=== PATIENT | female | born 1980 | race Caucasian/White ===

== ENCOUNTER 2020-04-19 03:18 | Emergency (ER) | payer OTHER, SELFPAY ==
[2020-04-19 03:31] VITALS: BP 154/94; PULSE 86; RESP 16; TEMP 37.2; O2SAT 100; BMI 44.9
--- NOTE | 2020-04-19 03:55 | ED_ITS ---
HPI - Wound/Laceration General Chief Complaint: Wound/Laceration Stated Complaint: Spitting up blood Time Seen by Provider: 04/19/20 03:55 History of Present Illness HPI narrative: This is a 40-year-old female who presents postop day 1 status post tonsillectomy with concerns regarding waking up with dark blood in her mouth. She denies any personal or family history of bleeding disorders, denies any gum bleeding, and denies history of menorrhagia. She has not had any fevers or chills. Related Data Allergies Allergy/AdvReac Type Severity Reaction Status Date / Time No Known Allergies Allergy Unverified 04/02/20 16:51 Review of Systems Review of Systems: Pertinent positives and negatives as stated in HPI 10 point review of systems otherwise negative. [facility] Past Medical History Source: nursing notes reviewed Medical History HTN (hypertension) Tonsillectomy planned Social History Social History Alcohol intake: never Smoking Status: Never smoker Use of substances other than those prescribed or required for medical reasons: No Advance Directives: No Advance Directives Information Provided: No Physical Exam Vital Signs and I&O and Narrative: Vital Signs and I&O: Vital Signs Temp 98.9 F 04/19/20 03:31 Pulse 86 04/19/20 03:31 Resp 16 04/19/20 03:31 BP 154/94 H 04/19/20 03:31 Pulse Ox 100 04/19/20 03:31 Intake & Output 04/18/20 04/18/20 04/19/20 06:59 18:59 06:59 Weight 107.955 kg Body Mass Index 44.9 VITAL SIGNS: Reviewed. GENERAL: Well developed, well nourished, in no acute distress. HEAD: Normocephalic/atraumatic, EYES: PERRLA, EOMI intact without pain, no nystagmus/pallor/icterus noted EARS: Ext canals without abnormality, TMs non-bulging and non-erythematous NOSE: Nares patent bilateral OROPHARYNX: no oral lesions noted, posterior pharynx shows normal appearance of tonsillar beds after surgical removal without evidence of acute bleeding. In addition, there is no evidence of airway compromise NECK: Supple, no adenopathy LUNGS: Normal breath sounds. No adventitious sounds or accessory muscle use. SpO2<> CARDIOVASCULAR: Regular rate and rhythm without noted murmurs, no JVD or lower extremity edema. ABDOMEN: Soft, non-tender, non-distended with bowel sounds. No rigidity. No guarding. No palpable masses or hernias noted MUSCULOSKELETAL: No tenderness, deformities, or effusions noted on gross inspection. EXTREMITIES: No cyanosis, clubbing or edema. SKIN: Inspection of the skin reveals no rashes, ulcerations, jaundice, pallor, or petechiae. NEUROLOGIC: Alert and oriented x 4. Strength and sensation to light touch were grossly intact Course Course Hospital Course: This is a 40-year-old female with history and clinical presentation consistent with normal progression of tonsillectomy at postop day 1 without respiratory compromise and patient was reassured that this was a normal occurrence. She was then advised that she can do ice water gargles 3 to 4 times a day and was encouraged to follow-up with the ENT physicians office tomorrow morning. Discharge Plan Discharge Clinical Impression: Wound disruption Qualifiers: Encounter type: initial encounter Qualified Code(s): T81.30XA - Disruption of wound, unspecified, initial encounter Patient Disposition: Home, Self-Care Instructions: Tonsillectomy (DC) Additional Instructions: 1. perform ice water gargles for 5-10 minutes, 3 to 4 times a day if you notice mild bleeding. 2. avoid spitting 3. return to the emergency department if you experience any uncontrolled bleeding despite using ice water gargles, especially if you experience difficulty breathing with this. 4. call the ENT office tomorrow and inform them of your visit to the emergency room and the recommendations that were made. The patient and/or family acknowledge understanding of results (as applicable), diagnosis, treatment plan, need for follow up, and symptoms that should prompt a return to the emergency room. Referrals: Physician,Unknown [Primary Care Provider] - 2 days (Please follow-up with your ENT physician tomorrow through their on-call office.) Print Language: American
== END 2020-04-19 05:11 | disposition home or self-care (01) ==
PROVIDERS: Emergency Provider Student in an Organized Health Care Education/Training Program
DX: T81.30XA Disruption of wound, unspecified, initial encounter (principal); Z98.890 Other specified postprocedural states; I10 Essential (primary) hypertension
CPT/HCPCS: 99282; 99284

== ENCOUNTER 2020-08-05 08:27 | Outpatient (REF) | payer MEDICAID, SELFPAY ==
[2020-08-06 08:41] LABS: BV Int Neg Control Negative (Negative); BV Int Pos Control Positive (Positive)
[2020-08-07 00:48] LABS: C. trachomatis RNA TMA NOT DETECTED (NOT DETECTED); N. gonorrhoeae RNA TMA NOT DETECTED (NOT DETECTED)
[2020-08-10 21:52] LABS: HPV mRNA E6/E7 Not Detected (Not Detected)
== END 2020-08-05 08:28 | disposition home or self-care (01) ==
LOC: HO.LAB 08:27
PROVIDERS: Visit Provider Obstetrics & Gynecology
DX: Z01.419 Encounter for gynecological examination (general) (routine) without abnormal findings (principal); T83.32XA Displacement of intrauterine contraceptive device, initial encounter; L68.0 Hirsutism; Z11.3 Encounter for screening for infections with a predominantly sexual mode of transmission
CPT/HCPCS: 36415; 87480; 87491; 87510; 87591; 87624; 87625; 87660; 88141; 88142

== ENCOUNTER 2020-08-13 14:48 | Outpatient (REF) | payer MEDICAID, SELFPAY ==
--- NOTE | 2020-08-13 14:52 | US_ITS ---
EXAMINATION: US PELVIS COMPLETE. CLINICAL INFORMATION: Question displacement of IUD. COMPARISON: Ultrasound pelvis 10/09/2015 TECHNIQUE: Transabdominal and transvaginal ultrasound pelvis is performed. FINDINGS: On transabdominal ultrasound, the uterus is anteverted and anteflexed measuring 9.3 cm in length, 4.1 cm in AP and 5.2 cm in transverse dimension. The myometrium is homogeneous in echotexture. There is an IUD well located within the endometrial canal. It is 0.75 cm away from the fundal endometrium. Small nabothian cyst is seen in cervix. The right ovary measures 3.9 x 3.2 x 3.9 cm and volume 25.5 mL. There is a small cyst in the right ovary measuring 3.2 x 2.7 x 3.0 cm. The left ovary measures 2.2 x 1.8 x 1.7 cm and volume 3.5 mL. It appears unremarkable. There is no free fluid in the cul-de-sac. US/US pelvic complete IMPRESSION: 1. Well located IUD within the endometrial canal. The uterus is otherwise unremarkable. 2. Multiple nabothian cysts in the cervix. 3. Small simple cyst, right ovary.
--- NOTE | 2020-08-13 14:52 | US_ITS ---
EXAMINATION: US PELVIS COMPLETE. CLINICAL INFORMATION: Question displacement of IUD. COMPARISON: Ultrasound pelvis 10/09/2015 TECHNIQUE: Transabdominal and transvaginal ultrasound pelvis is performed. FINDINGS: On transabdominal ultrasound, the uterus is anteverted and anteflexed measuring 9.3 cm in length, 4.1 cm in AP and 5.2 cm in transverse dimension. The myometrium is homogeneous in echotexture. There is an IUD well located within the endometrial canal. It is 0.75 cm away from the fundal endometrium. Small nabothian cyst is seen in cervix. The right ovary measures 3.9 x 3.2 x 3.9 cm and volume 25.5 mL. There is a small cyst in the right ovary measuring 3.2 x 2.7 x 3.0 cm. The left ovary measures 2.2 x 1.8 x 1.7 cm and volume 3.5 mL. It appears unremarkable. There is no free fluid in the cul-de-sac. US/US transvaginal IMPRESSION: 1. Well located IUD within the endometrial canal. The uterus is otherwise unremarkable. 2. Multiple nabothian cysts in the cervix. 3. Small simple cyst, right ovary.
[2020-08-14 03:46] LABS: Syphilis Screen Nonreactive (Nonreactive)
[2020-08-14 03:49] LABS: HBsAGNum1 0.18 S/CO (0.00-0.99); HIV AB/AG Nonreactive (Nonreactive); HIV Num 1 0.06 S/CO (0.00-0.99); Hepatitis B Surface Antigen Negative (Negative); ~HepC Num1 0.07 S/CO (0.00-0.79); ~Hepatitis C Antibody Nonreactive (Nonreactive)
[2020-08-14 06:12] LABS: DHEA Sulfate 139 mcg/dL (23-266)
[2020-08-15 17:43] LABS: C. trachomatis RNA TMA NOT DETECTED (NOT DETECTED); N. gonorrhoeae RNA TMA NOT DETECTED (NOT DETECTED)
[2020-08-18 10:02] LABS: Testosterone, Free 5.8 pg/mL (0.1-6.4); Testosterone, Total 33 ng/dL (2-45)
== END 2020-08-13 14:49 | disposition home or self-care (01) ==
LOC: HO.US 14:48
PROVIDERS: Visit Provider Obstetrics & Gynecology
DX: Z01.84 Encounter for antibody response examination (principal); Z11.3 Encounter for screening for infections with a predominantly sexual mode of transmission; T83.32XA Displacement of intrauterine contraceptive device, initial encounter; L68.0 Hirsutism
CPT/HCPCS: 36415; 76830; 76856; 82627; 83498; 84402; 84403; 86780; 86803; 87340; 87389; 87491; 87591

== ENCOUNTER → 2020-08-24 11:09 | Outpatient (BNVA) | payer MEDICAID, SELFPAY | PROVIDERS: Visit Provider Obstetrics & Gynecology ==

== ENCOUNTER → 2020-09-08 14:04 | Outpatient (BNVA) | payer MEDICAID, SELFPAY | PROVIDERS: Visit Provider Obstetrics & Gynecology | DX: Z30.433 Encounter for removal and reinsertion of intrauterine contraceptive device (principal) | CPT/HCPCS: 58300; 58301 ==

== ENCOUNTER → 2020-10-06 08:14 | Outpatient (BNVA) | payer MEDICAID, SELFPAY | PROVIDERS: Visit Provider Obstetrics & Gynecology | DX: Z30.431 Encounter for routine checking of intrauterine contraceptive device (principal) | CPT/HCPCS: 81025; 99212 ==

== ENCOUNTER 2021-03-10 09:53 | Outpatient (REF) | payer MEDICAID, SELFPAY ==
[2021-03-10 11:19] LABS: COVID-19 Test Negative (Negative)
== END 2021-03-10 09:54 | disposition home or self-care (01) ==
LOC: HO.LAB 09:53
PROVIDERS: Visit Provider Internal Medicine
DX: Z20.822 Contact with and (suspected) exposure to COVID-19 (principal)
CPT/HCPCS: 36415; 87635; C9803

== ENCOUNTER 2021-06-17 10:06 | Outpatient (REF) | payer MEDICAID, SELFPAY ==
[2021-06-17 16:57] LABS: CT PCR NOT DETECTED (Not Detect.); NG PCR NOT DETECTED (Not Detect.)
== END 2021-06-17 10:07 | disposition home or self-care (01) ==
LOC: HO.LAB 10:06
PROVIDERS: Visit Provider Obstetrics & Gynecology
DX: Z30.432 Encounter for removal of intrauterine contraceptive device (principal); N93.9 Abnormal uterine and vaginal bleeding, unspecified
CPT/HCPCS: 58301; 87491; 87591; 99212

== ENCOUNTER → 2021-06-29 09:53 | Outpatient (BNVA) | payer MEDICAID, SELFPAY | PROVIDERS: PCP Internal Medicine; Referring Provider Internal Medicine; Visit Provider Physician Assistant Surgical ==

== ENCOUNTER 2021-07-08 08:33 | Outpatient (REF) | payer MEDICAID, SELFPAY ==
[2021-07-08 10:01] LABS: Hematocrit 42.3 % (37.0-47.0); Hemoglobin 13.8 g/dl (12.0-16.0); Mean Corpuscular HGB Conc 32.6 g/dl (31.0-35.0); Mean Corpuscular Hemoglobin 30.3 pg (27.0-33.0); Mean Corpuscular Volume 92.8 fL (80.0-98.0); Mean Platelet Volume 10.2 fL (9.4-12.3); Platelet Count 308 X10*3/uL (160-400); Red Blood Count 4.56 X10*6/uL (4.20-5.50); Red Cell Distribution Width 12.7 % (11.0-16.0); White Blood Count 7.8 X10*3/uL (4.8-10.8)
[2021-07-08 10:47] LABS: HCG Quantitative < 2 mIU/mL
== END 2021-07-08 08:34 | disposition home or self-care (01) ==
LOC: HO.LAB 08:33
PROVIDERS: PCP Internal Medicine; Visit Provider Obstetrics & Gynecology
DX: N93.9 Abnormal uterine and vaginal bleeding, unspecified (principal); I10 Essential (primary) hypertension
CPT/HCPCS: 36415; 58100; 84443; 84702; 85027; 88305

== ENCOUNTER 2021-07-12 07:48 | Outpatient (REF) | payer MEDICAID, SELFPAY ==
--- NOTE | ~2021-07-12 | MM_ITS ---
EXAMINATION: MM SCREENING DIGITAL BREAST TOMOSYNTHESIS, BILATERAL CLINICAL INFORMATION: Screening. Asymptomatic. No prior breast imaging. Age 41. No known family history breast cancer. The lifetime risk of breast cancer based on the Tyrer-Cuzick Model is 8%. COMPARISON: None. TECHNIQUE: Digital breast tomosynthesis is performed in both the craniocaudal and mediolateral oblique views along with computer-aided detection (CAD). Synthesized 2D images are generated from the tomosynthesis. Additional bilateral MLO views are provided. FINDINGS: The breasts are almost entirely fatty (ACR BI-RADS breast composition Category a). There is no mass or architectural abnormality. No abnormal calcifications. Skin contours are smooth. The axilla are unremarkable. MM/MM tomosynthesis screening BI IMPRESSION: No mammographic evidence of malignancy. ASSESSMENT: BI-RADS 1: Negative RECOMMENDATION: Routine annual mammography screening. This patient's information was entered into a reminder system with a target due date for their next mammogram.
--- NOTE | ~2021-07-12 | US_ITS ---
EXAMINATION: US PELVIS CLINICAL INFORMATION: Abnormal menstrual bleeding. Last menstrual period 05/29/2021. COMPARISON: 08/13/2020 TECHNIQUE: Ultrasound of the pelvis is performed using both transabdominal and transvaginal transducers along with Doppler. Transvaginal imaging is performed due to inadequate visualization transabdominally. FINDINGS: Uterus: The uterus is anteverted and measures 8.6 x 4.2 x 5.2 cm. The double wall endometrial thickness is 6 mm. The uterus is smooth in contour and has normal myometrial echogenicity. No visible fibroid. Adnexa: Only the right ovary was visualized. There is normal color flow to the adnexa. There is no ovarian torsion. There is no pelvic ascites or fluid collection. Right ovary measures 3.6 x 3.0 x 2.9 cm. Follicle measuring up to 2.6 cm, normal finding. Small likely physiologic free fluid identified. US/US pelvic and transvaginal IMPRESSION: 1. No acute abnormalities within the pelvis identified sonographically. The left ovary was unable to be seen. 2. Small pelvic free fluid, likely physiologic in a premenopausal female.
== END 2021-07-12 07:49 | disposition home or self-care (01) ==
LOC: HO.MAMMO 07:48
PROVIDERS: Visit Provider Internal Medicine
DX: Z12.31 Encounter for screening mammogram for malignant neoplasm of breast (principal); N93.9 Abnormal uterine and vaginal bleeding, unspecified
CPT/HCPCS: 76830; 76856; 77063; 77067

== ENCOUNTER → 2021-07-20 10:52 | Outpatient (BNVA) | payer MEDICAID, SELFPAY | PROVIDERS: PCP Internal Medicine; Visit Provider Obstetrics & Gynecology ==

== ENCOUNTER → 2021-07-21 09:29 | Outpatient (BNVA) | payer MEDICAID, SELFPAY | PROVIDERS: PCP Internal Medicine; Visit Provider Surgery ==

== ENCOUNTER 2021-07-29 09:47 | Outpatient (REF) | payer MEDICAID, SELFPAY ==
--- NOTE | ~2021-07-29 | XR_ITS ---
EXAMINATION: XR CHEST CLINICAL INFORMATION: Obesity COMPARISON: Previous chest x-ray December 2018 TECHNIQUE: 2 views of the chest were obtained. FINDINGS: No significant abnormality is noted involving the heart, lungs, mediastinum, bony thorax or soft tissues. XR/XR chest 2V IMPRESSION: Unremarkable examination.
--- NOTE | 2021-07-29 09:52 | ECG_ITS ---
Test Reason : E66.01 Blood Pressure : / mmHG Vent. Rate : 069 BPM Atrial Rate : 069 BPM P-R Int : 148 ms QRS Dur : 084 ms QT Int : 380 ms P-R-T Axes : 052 026 028 degrees QTc Int : 407 ms Normal sinus rhythm Normal ECG When compared with ECG of 06-JAN-2019 00:47, Borderline criteria for Anterior infarct are no longer Present Referred By: Anshu Garg Electronically Signed By:JESSE FRY
[2021-07-29 10:06] LABS: MANUAL DIFF FLAG NO
[2021-07-29 10:37] LABS: Basophils Percent Auto 0.5 % (0-2); Eosinophils Absolute Auto 0.2 X10*3/uL (0.0-0.4); Eosinophils Percent Auto 3.2 % (0-4); Hemoglobin 14.1 g/dl (12.0-16.0); Imm Gran Abs Auto 0.02 X10*3/uL (0.00-0.03); Imm Gran Pct Auto 0.3 % (0.0-0.4); Lymphocytes Absolute Auto 1.6 X10*3/uL (1.2-4.9); Lymphocytes Percent Auto 25.8 % (20-40); Mean Corpuscular HGB Conc 32.8 g/dl (31.0-35.0); Mean Corpuscular Hemoglobin 30.4 pg (27.0-33.0); Mean Corpuscular Volume 92.7 fL (80.0-98.0); Mean Platelet Volume 10.5 fL (9.4-12.3); Monocytes Absolute Auto 0.7 X10*3/uL (0.1-1.2); Monocytes Percent Auto 10.4 % (2-11); Neutrophils Absolute Auto 3.8 x10*3/uL (2.0-8.3); Neutrophils Percent Auto 59.8 % (45-73); Platelet Count 296 X10*3/uL (160-400); Red Blood Count 4.64 X10*6/uL (4.20-5.50); Red Cell Distribution Width 12.6 % (11.0-16.0); White Blood Count 6.3 X10*3/uL (4.8-10.8)
[2021-07-29 11:15] LABS: Alanine Aminotransferase 43 U/L (0-31); Albumin Level 3.8 g/dL (3.5-5.0); Alkaline Phosphatase 56 U/L (39-117); Anion Gap 10 (12-20); Aspartate Amino Transferase 26 U/L (5-31); Bilirubin Total 0.6 mg/dL (0.0-1.0); Blood Urea Nitrogen 10 mg/dL (9-16); C Reactive Protein 0.43 mg/dL (< or = 0.50); Calcium 9.2 mg/dL (8.4-10.2); Carbon Dioxide 28 mmol/L (22-29); Chloride 106 mmol/L (96-108); Cholesterol 168 mg/dL; Estimated Glomerular Filt Rate > 60; Glucose Random 92 mg/dL (60-115); HDL Cholesterol 47 mg/dL; Iron 68 mcg/dL (30-160); LDL Cholesterol Calculated 102 mg/dl; Percent Iron Saturation 21 % (15-50); Potassium 4.1 mmol/L (3.3-5.1); Sodium 140 mmol/L (135-145); Total Iron Binding Capacity 331 mcg/dL (228-428); Total Protein 6.6 g/dL (6.5-8.0); Triglycerides 99 mg/dL; Unsaturated Iron Binding 263 ug/dL
[2021-07-29 11:24] LABS: TSH reflex Free T4 0.87 uIU/mL (0.32-4.0); Vitamin D 25-OH Total 23.4 ng/mL (>30)
[2021-07-29 11:34] LABS: Estimated Average Glucose 105 mg/dL; Hemoglobin A1c % 5.3 %
[2021-07-29 12:09] LABS: Folate 11.2 ng/mL (> or = 4.0); Vitamin B12 700 pg/mL (200-900)
[2021-07-29 12:25] LABS: Ferritin 92 ng/mL (10-250); Insulin 11 uU/mL (2-29)
[2021-07-30 12:57] LABS: H Pylori Breath Test Negative (Negative)
[2021-07-30 18:01] LABS: Calcium (PTHI) 9.1 mg/dL (8.6-10.2); PTHI 67 pg/mL (14-64)
[2021-08-03 15:57] LABS: Zinc 66 mcg/dL (60-130)
[2021-08-04 14:42] LABS: Vitamin A 53 mcg/dL (38-98)
[2021-08-04 16:31] LABS: Vitamin B1 9 nmol/L (8-30)
== END 2021-07-29 09:48 | disposition home or self-care (01) ==
LOC: HO.XRAY 09:47
PROVIDERS: PCP Internal Medicine; Visit Provider Surgery
DX: E66.01 Morbid (severe) obesity due to excess calories (principal); I10 Essential (primary) hypertension
CPT/HCPCS: 36415; 71046; 80053; 80061; 82306; 82607; 82728; 82746; 83013; 83036; 83525; 83540; 83970; 84425; 84443; 84590; 84630; 85025; 86140; 93005; 99211

== ENCOUNTER → 2021-08-20 08:02 | Outpatient (BNVA) | payer MEDICAID, SELFPAY | PROVIDERS: PCP Internal Medicine; Visit Provider Surgery ==

== ENCOUNTER → 2021-08-25 08:16 | Outpatient (BNVA) | payer MEDICAID, SELFPAY | PROVIDERS: PCP Internal Medicine; Visit Provider Dietitian, Registered | DX: E66.01 Morbid (severe) obesity due to excess calories (principal) | CPT/HCPCS: 97802 ==

== ENCOUNTER → 2021-09-08 08:02 | Outpatient (BNVA) | payer MEDICAID, SELFPAY | PROVIDERS: PCP Internal Medicine; Visit Provider Dietitian, Registered | DX: E66.01 Morbid (severe) obesity due to excess calories (principal); Z68.41 Body mass index [BMI] 40.0-44.9, adult | CPT/HCPCS: 97803 ==

== ENCOUNTER 2021-09-13 09:20 | Outpatient (REF) | payer MEDICAID, SELFPAY ==
--- NOTE | ~2021-09-13 | US_ITS ---
EXAMINATION: US COMPLETE ABDOMEN WITH LIVER ELASTOGRAPHY CLINICAL INFORMATION: Morbid obesity COMPARISON: None. TECHNIQUE: Real-time imaging of the abdominal viscera. Noninvasive ultrasound liver fibrosis assessment is performed using Saba ElastPQ point quantification shear wave elastography (2D-SWE) with a C5-2 MHz transducer. Multiple elastography samples are obtained. FINDINGS: PANCREAS: Normal. The visualized pancreatic head and body are normal in appearance. The remainder of the pancreas is obscured from visualization by the overlying bowel gas. ABDOMINAL AORTA: The proximal, middle, and distal aortic segments are normal in caliber. INFERIOR VENA CAVA: Visualized portions are normal. LIVER: Diffuse increased parenchymal echogenicity. Mild hepatomegaly. The liver demonstrates normal size, contour.. No focal lesion or intrahepatic biliary duct dilatation. The right lobe measures 18.5 cm in length. The left lobe measures 12.4 cm in length. Portal flow is hepatopedal Shear wave liver elastography median stiffness is 1.77 m/s (reference: normal median stiffness is 1.3 m/s or less). IQR/median stiffness to assess sampling precision is 0.16 (reference: good quality data set is IQR/median stiffness of 0.15 or less). GALLBLADDER: Normal. The gallbladder is physiologically distended without evidence of stones, sludge, polyps, wall thickening or pericholecystic fluid. COMMON BILE DUCT: Normal in caliber measuring 0.3 cm in diameter. RIGHT KIDNEY: Normal. No hydronephrosis. No renal calculi or focal parenchymal lesions. The kidney measures 11.9 cm in maximum dimension. LEFT KIDNEY: Normal. No hydronephrosis. No renal calculi or focal parenchymal lesions. The kidney measures 11.7 cm in maximum dimension. SPLEEN: Normal. The spleen measures 9.4 cm in maximum dimension. FREE FLUID: None. US/US abdomen comp w elastography IMPRESSION: 1. Increased hepatic parenchymal echogenicity, can be seen with hepatic steatosis, hepatocellular disease. No focal lesion seen. 2. Liver elastography: Median stiffness 1.77 cm/s. Liver Stiffness 1.7-2.1 m/s: Suggestive of compensated advanced chronic liver disease but need further test for confirmation REFERENCE: Society of Radiologists in Ultrasound Liver Stiffness Thresholds (2020): LIVER STIFFNESS THRESHOLDS: *Liver Stiffness equal or less than 1.3 m/s: High probability of being normal. *Liver Stiffness less than 1.7 m/s: In the absence of other known clinical signs, rules out compensated advanced chronic liver disease. *Liver Stiffness 1.7-2.1 m/s: Suggestive of compensated advanced chronic liver disease but need further test for confirmation. *Liver Stiffness over 2.1 m/s: Rules in compensated advanced chronic liver disease. *Liver Stiffness over 2.4 m/s: Suggestive of clinically significant portal hypertension. QUALITY OF DATA SET: *IQR/Median value equal or less than 0.15 implies a quality data set. *IQR/Median value over 0.15 implies a poor quality data set. SIGNIFICANT CHANGE FROM PRIOR EXAM: Significant change if liver stiffness measurement is 10% or greater from prior exam. OTHER CONSIDERATIONS: The stage of liver fibrosis may be overestimated in the setting of acute hepatitis, liver inflammation, elevated liver function tests, hepatic vascular congestion, obstructive cholestasis, non-fasting state, and infiltrative diseases such as amyloidosis and lymphoma. In some patients with NAFLD, the liver stiffness thresholds for compensated advanced chronic liver disease may be lower. In causes other than viral hepatitis and NAFLD, liver stiffness thresholds are not well established.
--- NOTE | ~2021-09-13 | FL_ITS ---
EXAMINATION: XR FLUOROSCOPY UPPER GI WITH AIR CLINICAL INFORMATION: Ihyogv-[id number] obesity due to excess calories. COMPARISON: None. TECHNIQUE: Routine upper GI air-contrast study was performed. FINDINGS: Following oral administration of thick barium and effervescent granules, there is normal propagation of bolus from the oral cavity through the pharynx and esophagus and into the stomach without obstruction, narrowing or stricture. On placing patient supine and prone lying, the course, caliber and peristalsis of stomach, duodenal bulb and the sweep are normal. The mucosal pattern of the stomach and the duodenum is normal. There is mild flocculation of barium in the antrum, question hyperacidity. No gastroesophageal reflux or hiatal hernia seen. FLUOROSCOPY TIME: 1.2 minutes DOSE AREA PRODUCT: 28.610 uGy-m2 (microgray-meter squared) FL/FL upper GI w air IMPRESSION: Mild flocculation of barium in the antrum suspicious for hyperacidity. Otherwise unremarkable upper GI air-contrast study.
== END 2021-09-13 09:21 | disposition home or self-care (01) ==
LOC: HO.US 09:20
PROVIDERS: PCP Internal Medicine; Visit Provider Surgery
DX: E66.01 Morbid (severe) obesity due to excess calories (principal); I10 Essential (primary) hypertension
CPT/HCPCS: 74246; 76705; 76981

== ENCOUNTER → 2021-09-17 08:16 | Outpatient (BNVA) | payer MEDICAID, SELFPAY | PROVIDERS: PCP Internal Medicine; Visit Provider Surgery ==

== ENCOUNTER → 2021-09-22 08:06 | Outpatient (BNVA) | payer MEDICAID, SELFPAY | PROVIDERS: PCP Internal Medicine; Visit Provider Obstetrics & Gynecology ==

== ENCOUNTER 2021-09-23 06:09 | Inpatient (IN) | payer MEDICAID, SELFPAY ==
[2021-09-18 08:52] LABS: MANUAL DIFF FLAG NO
[2021-09-18 09:25] LABS: Basophils Percent Auto 0.3 % (0-2); Eosinophils Absolute Auto 0.2 X10*3/uL (0.0-0.4); Eosinophils Percent Auto 2.2 % (0-4); Hematocrit 44.8 % (37.0-47.0); Hemoglobin 14.4 g/dl (12.0-16.0); Imm Gran Abs Auto 0.02 X10*3/uL (0.00-0.03); Imm Gran Pct Auto 0.3 % (0.0-0.4); Lymphocytes Absolute Auto 1.4 X10*3/uL (1.2-4.9); Lymphocytes Percent Auto 20.9 % (20-40); Mean Corpuscular HGB Conc 32.1 g/dl (31.0-35.0); Mean Corpuscular Hemoglobin 30.3 pg (27.0-33.0); Mean Corpuscular Volume 94.1 fL (80.0-98.0); Mean Platelet Volume 10.4 fL (9.4-12.3); Monocytes Absolute Auto 0.6 X10*3/uL (0.1-1.2); Monocytes Percent Auto 8.9 % (2-11); Neutrophils Absolute Auto 4.6 x10*3/uL (2.0-8.3); Neutrophils Percent Auto 67.4 % (45-73); Platelet Count 268 X10*3/uL (160-400); Red Blood Count 4.76 X10*6/uL (4.20-5.50); Red Cell Distribution Width 12.4 % (11.0-16.0); White Blood Count 6.8 X10*3/uL (4.8-10.8)
[2021-09-18 09:29] LABS: INTERNATIONAL NORM RATIO 1.1 (0.9-1.1); Prothrombin Time 12.2 SEC (9.9-13.0)
[2021-09-18 09:30] LABS: Estimated Average Glucose 105 mg/dL; Hemoglobin A1c % 5.3 %
[2021-09-18 09:32] LABS: Partial Thromboplastin Time 38.7 SEC (24.1-38.0)
[2021-09-18 09:49] LABS: Alanine Aminotransferase 28 U/L (0-31); Albumin Level 3.9 g/dL (3.5-5.0); Alkaline Phosphatase 61 U/L (39-117); Anion Gap 13 (12-20); Aspartate Amino Transferase 21 U/L (5-31); Bilirubin Total 0.7 mg/dL (0.0-1.0); Blood Urea Nitrogen 11 mg/dL (9-16); C Reactive Protein 0.84 mg/dL (< or = 0.50); Calcium 9.5 mg/dL (8.4-10.2); Carbon Dioxide 26 mmol/L (22-29); Chloride 106 mmol/L (96-108); Cholesterol 160 mg/dL; Estimated Glomerular Filt Rate > 60; Glucose Random 87 mg/dL (60-115); HDL Cholesterol 46 mg/dL; LDL Cholesterol Calculated 98 mg/dl; Potassium 4.2 mmol/L (3.3-5.1); Sodium 141 mmol/L (135-145); Total Protein 6.6 g/dL (6.5-8.0); Triglycerides 82 mg/dL
[2021-09-18 10:09] LABS: Insulin 11 uU/mL (2-29); TSH reflex Free T4 0.88 uIU/mL (0.32-4.0)
--- NOTE | 2021-09-18 22:30 | MHC.SHP ---
Pre-Procedural Eval Section A Date of Service: 09/18/21 The patient is an INPATIENT: Yes The History & Physical has been completed within 30 days and I have reviewed it.: Yes Section B Chief Complaint: obesity Relevant Family History (Specify if Yes): No Relevant Social History: None Present Medications: None Medical History: No relevant PMH History of Previous Operations: No relevant previous surgery Allergies: Allergies Allergy/AdvReac Type Severity Reaction Status Date / Time No Known Allergies Allergy Verified 09/17/21 13:20 Review of Systems Sugical H&P ROS: Negative: Constitution, Cardiovascular, Respiratory, Neurological, Psychiatric, Hem-Onc, Allergic/Immunologic, Gastrointestinal, Genitourinary, Musculoskeletal, Integumentary, Endocrine and Eyes/Ears/Nose/Throat Exam Surgical H&P Exam: Normal: HEENT, Normal: Heart, Normal: Lungs, Normal: Extremities, Normal: Abdomen, Normal: Skin and Normal: Neurological Plan Diagnosis/Plan: Unchanged I have reviewed the history and physical and performed a pertinent physical examination on my patient. No changes have occurred unless specified.
[2021-09-20 12:17] VITALS: BMI 43.7
[2021-09-22 09:58] LABS: COVID-19 Test Negative (Negative)
[2021-09-22 09:59] LABS: IDNOW Serial# 55D5AD1C
[2021-09-23] VITALS (9 sets, daily range): BP systolic 122–146; BP diastolic 61–95; PULSE 72–96; RESP 12–17; TEMP 36.5–37.3; O2SAT 94–99
[2021-09-23 06:31] LABS: UPreg QC Valid YES; Urine Pregnancy NEGATIVE (NEGATIVE)
[2021-09-23] MEDS: Lactated Ringers 1,000 ML 999 ML IV (06:54)
--- NOTE | 2021-09-23 07:13 | PC.NURSE ---
right forearm iv infiltrated after iv insertion attempt. painful at insertion site. applied warm compress.
--- NOTE | 2021-09-23 07:22 | P.CONAN_ITS ---
HPI - Anesthesia Eval Consult details Narrative: 41 yr old female patient for EGD, sleeve gastrectomy, possible diaphragmatic hernia repair, possible ventral hernia repair, possible open PMFSH Active Problems Active Problems: All Active Problems (Updated 09/20/21 @ 12:14 by Lupe Chinchilla RN) Well woman exam (Acute) Hirsutism (Acute) IUD threads lost (Acute) Screening for STD (sexually transmitted disease) (Acute) Family planning (Acute) IUD check up (Acute) Encounter for IUD removal (Acute) Abnormal uterine bleeding (Acute) Depression (Acute) HTN (hypertension) (Acute) Morbid obesity (Acute) Denies snoring, ONEAL. Never had sleep test Past Medical History Medical History Depression HTN (hypertension) Morbid obesity Family History Family History Mother High cholesterol Father No problems noted. Sister Breast cancer Daughter Depression History of anxiety Family history of problems with anesthesia: No Surgical History Surgical History Hx of tonsillectomy History of Problems with Anesthesia: No Social History Social History Household Members: None Housing: Apartment Are you a primary anesthesiologist and critical care to a significant other at home: No Do you presently have visiting nurse or other home services: No Alcohol intake: never Patient Tobacco Use Status: Former Tobacco user Quit Date: 2018 Tobacco use type: Cigarette Use of substances other than those prescribed or required for medical reasons: No Have you been hit, kicked, punched, or otherwise hurt by someone within the past year? If so, by whom?: No Are you DNR?: No Advance Directives: No Advance Directives Information Provided: Yes Advance Directives on File: No Recently lost weight without trying: No Nutrition Risks: No Nutritional Risk Patient : No FDLMP: 08/13/2021 : No Poor oral hygiene: No Meds Allergies Allergy/AdvReac Type Severity Reaction Status Date / Time No Known Allergies Allergy Verified 09/22/21 08:35 Home Medications Medication Instructions Recorded Confirmed Last Taken Type hydrochlorothiazide 12.5 mg tablet 12.5 mg PO DAILY 08/05/20 09/20/21 Unknown History cholecalciferol (vitamin D3) 50 1 cap PO DAILY 09/20/21 09/20/21 Unknown History mcg (2,000 unit) capsule Exam Exam Date and Time: September 23, 2021721 Height,Weight and Vital Signs: Height 5 ft Weight 101.605 kg Last Vital Signs Temp 97.7 F 09/23/21 06:30 Pulse 85 09/23/21 06:30 Resp 16 09/23/21 06:30 BP 122/76 09/23/21 06:30 Pertinent Lab Results Pertinent Lab Results: Laboratory Tests 09/18/21 09/18/21 09/18/21 08:50 08:50 08:50 WBC 6.8 RBC 4.76 Hgb 14.4 Hct 44.8 MCV 94.1 MCH 30.3 MCHC 32.1 RDW 12.4 Plt Count 268 MPV 10.4 Immature Gran % (Auto) 0.3 Neut % (Auto) 67.4 Lymph % (Auto) 20.9 [place]ws[place] % (Auto) 8.9 Eos % (Auto) 2.2 Baso % (Auto) 0.3 Lymph # (Auto) 1.4 [place]ws[place] # (Auto) 0.6 Eos # (Auto) 0.2 Baso # (Auto) 0.0 Abs Immat Gran (auto) 0.02 Absolute Neuts (auto) 4.6 Absolute Nucleated RBC 0.000 Nucleated RBC % (auto) 0.0 PT 12.2 INR 1.1 APTT 38.7 H Sodium 141 Potassium 4.2 Chloride 106 Carbon Dioxide 26 Anion Gap 13 BUN 11 Creatinine 0.82 Estim Creat Clear Calc TNP Estimated GFR > 60 Random Glucose 87 Estimat Average Glucose Hemoglobin A1c % Insulin Level 11 Calcium 9.5 Total Bilirubin 0.7 AST 21 ALT 28 Alkaline Phosphatase 61 C-Reactive Protein 0.84 H Total Protein 6.6 Albumin 3.9 Triglycerides 82 Cholesterol 160 LDL Cholesterol, Calc 98 HDL Cholesterol 46 TSH 0.88 Urine Test COVID-19 ([facility]) COVID-19 Clin Com Blood Type Antibody Screen 09/18/21 09/18/21 09/22/21 08:50 08:50 09:25 WBC RBC Hgb Hct MCV MCH MCHC RDW Plt Count MPV Immature Gran % (Auto) Neut % (Auto) Lymph % (Auto) [place] % (Auto) Eos % (Auto) Baso % (Auto) Lymph # (Auto) [place] # (Auto) Eos # (Auto) Baso # (Auto) Abs Immat Gran (auto) Absolute Neuts (auto) Absolute Nucleated RBC Nucleated RBC % (auto) PT INR APTT Sodium Potassium Chloride Carbon Dioxide Anion Gap BUN Creatinine Estim Creat Clear Calc Estimated GFR Random Glucose Estimat Average Glucose 105 Hemoglobin A1c % 5.3 Insulin Level Calcium Total Bilirubin AST ALT Alkaline Phosphatase C-Reactive Protein Total Protein Albumin Triglycerides Cholesterol LDL Cholesterol, Calc HDL Cholesterol TSH Urine Test COVID-19 ([facility]) Negative COVID-[place] See Note Blood Type A Positive Antibody Screen NEGATIVE 09/23/21 06:10 WBC RBC Hgb Hct MCV MCH MCHC RDW Plt Count MPV Immature Gran % (Auto) Neut % (Auto) Lymph % (Auto) [place] % (Auto) Eos % (Auto) Baso % (Auto) Lymph # (Auto) [place] # (Auto) Eos # (Auto) Baso # (Auto) Abs Immat Gran (auto) Absolute Neuts (auto) Absolute Nucleated RBC Nucleated RBC % (auto) PT INR APTT Sodium Potassium Chloride Carbon Dioxide Anion Gap BUN Creatinine Estim Creat Clear Calc Estimated GFR Random Glucose Estimat Average Glucose Hemoglobin A1c % Insulin Level Calcium Total Bilirubin AST ALT Alkaline Phosphatase C-Reactive Protein Total Protein Albumin Triglycerides Cholesterol LDL Cholesterol, Calc HDL Cholesterol TSH Urine Test NEGATIVE COVID-19 ([facility]) COVID-19 [facility] Com Blood Type Antibody Screen Airway Mallampati Class: III TM Dist: >3cm Neck ROM: Full Loose/Missing/Broken Teeth: Yes (Some extractions) Heart: RRR Lungs: CTAB Assessment and Plan Assessment Anesthesia Assessment: Anesthesia Plan Discussed and Chart Reviewed Final Anesthetic Review Family History of Problems with Anesthesia: No History of Problems with Anesthesia: No NPO: Yes ASA Class: III Final Preanesthetic Review: No Changes in Pt Med Stat, Meds/Allgs Chart Reviewed, Consent Obtained/Reviewed and Anes Risks/Benef Reviewed Patient Risk: Intermediate Procedure Risk: Intermediate Assessment/Block/Sedation in SS: Assess/Block/Sedation-SS Anesthetic Plan Anesthetic Plan: GA Disposition: Standard PACU and Inp. Admit - Standard Bed
--- NOTE | 2021-09-23 07:55 | P.BOP_ITS ---
Brief Operative Note Date of Service: 09/23/21 Pre-op diagnosis: Refractory morbid obesity with comorbidities (see below0 Post-op diagnosis: same (incarcerated paraesophageal hernia, & separate diaphragmatic hernia) Procedure: INITIAL PATIENT BMI ON PRESENTATION AT OUR OFFICE: 45.8 kg/m2 LAST BMI BEFORE SURGERY: 41 kg/m2 COMORBIDITIES: hypertension, depression, liver steatosis ?The patient presented to the Weight Management Program with significant obesity that was negatively impacting the patient's comorbidities as listed above.? The program is a phased program with a special focus on preoperative medical weight management to promote substantial weight loss and prepare the patients for the second phase of the program: bariatric surgery. The patient participated in an intensive weekly lifestyle ?intervention and exercise program during which the patient ?has lost between the initial office visit and the last preoperative visit 17.6 lbs, or 7.26% of initial actual body weight. It was deemed appropriate for the patient to now have bariatric surgery. In light of the current Covid-19 pandemic and the well documented strong association of obesity and increased risk of worse outcomes if infected with Covid-19 (REFERENCES: https://pubmed.ncbi.nlm.nih.gov/75766296/ ,? https://pubmed.ncbi.nlm.nih.gov/61708008/ ), any delay in undergoing bariatric surgery may lead to the patient's worsening health condition and increased?risk of more severe Covid-19 disease if infected. In addition a recent?study from [facility] published in [facility] [facility] on 07/12/2021 ([email or web address]) found that, among patients with obesity, substantial weight loss achieved with surgery was associated with improved outcomes of COVID-19 infection. The findings suggest that obesity can be a modifiable risk factor for the severity of COVID- 19 infection. In addition, the patient met the BMI-criteria for bariatric surgery based on the BMI on initial presentation. The patient should not be penalized for achieving such weight loss because ?it is not sustainable long-term without surgical intervention and it was achieved in preparation for bariatric surgery ?under my direction and based on my published research ([email or web address]).[email or web address] and? https://www.soard.org/article/[email or web address](68)88636-X/pdf ) ?that a 10% preoperative weight loss improves long-term weight loss after surgery and reduces perioperative complications.? Insurance carriers such as [facility] have endorsed my recommendations ?and have included in their policies criteria to include a 10% preoperative weight loss requirement. PROCEDURE: Esophago-gastroscopy, laparoscopic repair of incarcerated paraesoph ageal hernia, repair of diaphragmatic hernia, laparoscopic sleeve gastrectomy and laparoscopic gastropexy INDICATIONS: This is a 41 year-old female who was electively scheduled for laparoscopic, possibly open sleeve gastrectomy. The risks and complications of the procedure were discussed with the patient in advance, particularly the possibility of ; pulmonary embolism; staple line leak; bleeding; GERD; cardiac, pulmonary, or renal complications; as well as long-term problems such as insufficient weight loss, vitamin deficiency, strictures, or ulcers. The patient understood all the risks, and was in agreement to proceed with surgery. DESCRIPTION OF PROCEDURE: After informed consent was obtained from the patient, the patient was given preoperative antibiotics, and was transferred to the operating room. After successful induction of general anesthesia, pneumatic compression devices were placed on both lower extremities. An upper endoscopy was performed next. The oropharynx and esophagus appeared to be within normal limits. There was a diaphragmatic hernia present of moderate size that was nor reported at the preoperative upper GI. The stomach was entered. Then after all fluid and air were suctioned and the stomach was fully decompressed, the scope was withdrawn and secured in the mid esophagus. The patient was then prepped and draped in the usual sterile manner, and abdom inal access was established at the right upper quadrant with the Bryan technique. A 12 mm blunt port was inserted, and the abdomen was insufflated with CO2 to a pressure of 15 mmHg. Under direct visualization, additional ports were placed, specifically two 5 mm Versi-step ports to the left upper quadrant, and a 5 mm Versi-Step port to the right upper quadrant. 1% lidocaine plain was used to infiltrate all port sites as well as all fascia defects. Following that, the patient was placed in a steep reverse Trendelenburg position. An additional 5 mm port was placed to the right flank for the Mediflex retractor that was used to retract the left lobe of the liver. The gastro-esophageal fat pad was opened with the ultrasonic device (Thunderbeat, Olympus) and the anterior esophagus and hiatus were exposed. The angle of His was opened with the ultrasonic device the fundus of the stomach from any diaphragmatic and splenic attachments. I then opened the gastrocolic ligament between the transverse colon and the greater curvature of the stomach with the ultrasonic device to enter the lesser sac and facilitate the ligation of the short gastric vessels. I started at a mid-point along the greater curvature and using the Thunderbeat, all short gastric vessels were divided all the way to the angle of His until the left dontrell was completely dissected at its entirety. I then divided the gastro-colic ligament distally to a distance of about 3-4 cm proximal to the pylorus. There was an obvious significant-sized hiatal hernia. In addition, I noticed that the gastro-esophageal fat pad was incarcerated in a different space than the hiatal hernia and it could not be reduced. I continued dissecting along the hiatus toward the left dontrell and the angle of His. I fully mobilized the fat pad that was incarcerated in the hernia. I then continued by dissecting even further into the posterior retro-esophageal space all the way to the angle of His. I continued to mobilize the esophagus into the mediastinum circumferentially. Both vagal nerves were seen and preserved. At that point, I was able to have at least 3 to 5 cm of esophagus into the abdomen. It appears that the patient had a combined hiatal and paraesophageal hernia with the fat pad incarcerated in between the muscle fibers of the left dontrell into the posterior mediastinum. I was able to reduce the fat pad completely? After I completely mobilized the esophagus from both the left and right dontrell and I had a good mobilization of the esophagus circumferentially, I closed the hernia defects with three interrupted #0 Surgidac sutures using the Endo Stitch device, two of which was placed posterior and one of which anterior to the esophagus. ? The stomach was then divided transversely with one Endo LOYD-45 purple, and four LOYD-60 articulating orange loads using the AEON stapler and loads. Every effort was made that the gastric sleeve had a tubular shape and an even caliber throughout. Once the sleeve resection was completed, the staple line of the gastric sleeve was reinforced with Hemoclips. The resected stomach was retrieved without difficulty from the Bryan port. A gastropexy was then performed in order to prevent postoperative GERD and partial gastric volvulus. Several interrupted 2.0 Surgidac sutures were placed between the sleeve's staple line and the previously divided greater omentum and gastro-colic ligament using the Endo-Stitch device. ?An upper endoscopy was performed. There was no narrowing at the GE junction. The scope was easily advanced all the way to the pylorus which was clearly v isualized. There was no narrowing anywhere and the sleeve's caliber was even throughout. The sleeve's staple line was inspected and there was no evidence of ischemia, bleeding or dehiscence. At that point the gastroscope was withdrawn from the patient?s mouth while we were decompressing the bowel and the stomach from any remaining air. I looked into the lesser sac to see how the sleeve was situating and it was situating well. There was no bleeding from the staple line, spleen, or short gastric vessels. The Mediflex retractor was removed, and the undersurface of the liver was inspected and there was no bleeding. The patient was placed in supine position. I closed the fascial defect of the 12 mm port site with a figure of eight #1 Polysorb suture. Then 100 cc 0.25 % Marcaine plain with 10 mg of Dexamethasone were used to infiltrate the fascial closure as well as all skin incisions. At this point, the abdomen was deflated, all ports were removed under direct vision, and no bleeding was noted from any of the port sites. The skin incisions were irrigated with saline and were closed with 4-0 absorbable monofilament sutures. Steri-Strips and OpSites were used to cover all incisions. The patient was extubated and was transferred in stable condition to the recovery room for further care. I was present and performed all nails parts of the procedure. Ms. Martinez was the first aid director. There were no residents to assist with this case. Boaz Garg MD, PhD, FACS Surgeon: Anshu Garg MD Anesthesia: GETA, local and other (TAP block) Was an Crew Team Member used for this Procedure?: No Crew Team Member: Lyle Tian Estimated blood loss (mL): 10 IV fluids (mL): 2,300 Urine output (mL): 0 (No Rae to record) Pathology: other (Stomach) Condition: stable Disposition: PACU
--- NOTE | 2021-09-23 07:56 | PM.PNGS ---
Subjective Subjective Date of Service: 09/23/21 Interval history: Patient has mild incisional pain, but was able to ambulate and use the incentive spirometer. She is tolerating phase 1 bariatric diet Physical Exam Vital Signs: Vital Signs: Last Vital Signs Temp 97.7 F 09/23/21 06:30 Pulse 85 09/23/21 06:30 Resp 16 09/23/21 06:30 BP 122/76 09/23/21 06:30 BMI result Body Mass Index 43.7 GI: Inspection: Yes normal to inspection, Yes incision (clean, dry and intact) and Yes obesity Extrem: Right lower extremity: normal to inspection (no calf tenderness) Left lower extremity: normal to inspection (no calf tenderness) Objective Data Active Medications Fentanyl (Fentanyl Citrate/Pf 100 Mcg/2 Ml Vial) 25 mcg IVPUSH Q5M PRN; Protocol PRN Reason: Pain, Moderate (Pain Scale 4-6 Hydromorphone HCl (Hydromorphone Hcl 0.5 Mg/0.5 Ml Syringe) 0.25 mg IVPUSH Q5M PRN; Protocol PRN Reason: Pain, Severe (Pain Scale 7-10) Lactated Ringer's (Lr) 1,000 mls @ 100 mls/hr IVCONT .Q10H ALCIDES Promethazine HCl 6.25 mg/ (Sodium Chloride) 50.25 mls @ 201 mls/hr IV ONCE PRN PRN Reason: Nausea and Vomiting Ondansetron HCl (Ondansetron Hcl 4 Mg/2 Ml Vial) 4 mg IVPUSH ONCE PRN PRN Reason: Nausea and Vomiting Labs CBC & Chem 7: 09/18/21 08:50 09/18/21 08:50 Labs: Laboratory Results - last 24 hr 09/22/21 09/23/21 09:25 06:10 Urine Test NEGATIVE COVID-19 (LUIS) Negative COVID-19 Clin Com See Note Progress Note: A&P Assessment and plan (1) Morbid obesity: Status: Acute Assessment and Plan: s/p laparoscopic sleeve gastrectomy, lysis of adhesions repair of diaphragmatic hernia, and gastropexy Doing well Check am labs. If OK, will discharge home? (2) HTN (hypertension): Status: Acute (3) Depression: Status: Acute (4) Hirsutism: Status: Acute (5) S/P laparoscopic sleeve gastrectomy: Status: Acute (6) S/P repair of paraesophageal hernia: Status: Acute (7) Paraesophageal hernia: Status: Acute (8) Diaphragmatic hernia: Status: Acute Fall Risk Details Current Medications: Current Medications Fentanyl (Fentanyl Citrate/Pf 100 Mcg/2 Ml Vial) 25 mcg IVPUSH Q5M PRN; Protocol PRN Reason: Pain, Moderate (Pain Scale 4-6 Hydromorphone HCl (Hydromorphone Hcl 0.5 Mg/0.5 Ml Syringe) 0.25 mg IVPUSH Q5M PRN; Protocol PRN Reason: Pain, Severe (Pain Scale 7-10) Lactated Ringer's (Lr) 1,000 mls @ 100 mls/hr IVCONT .Q10H ALCIDES Promethazine HCl 6.25 mg/ (Sodium Chloride) 50.25 mls @ 201 mls/hr IV ONCE PRN PRN Reason: Nausea and Vomiting Ondansetron HCl (Ondansetron Hcl 4 Mg/2 Ml Vial) 4 mg IVPUSH ONCE PRN PRN Reason: Nausea and Vomiting Time Spent With Patient Time: Total time spent is greater than 50% in coordination of care (as documented) at patient's floor/unit and/or counseling patient: Quality Stroke Does the patient have a stroke diagnosis?: No VTE Prior VTE?: No VTE Risk Level:: Surgical - moderate VTE Device Contraindication: N/A - Device Ordered VTE Drug Contraindication: Treatment Not Indicated
--- NOTE | 2021-09-23 10:36 | P.DS_ITS ---
DS: Providers Provider Date of Service: 09/24/21 Date of admission: 09/23/21 06:09 Primary care physician: Deondre Hayes MD DS: Diagnosis Discharge Diagnosis (1) Morbid obesity: Status: Acute (2) HTN (hypertension): Status: Acute (3) Depression: Status: Acute (4) Hirsutism: Status: Acute DS: Summary Hospital Course Hospital Course: ADMITTING DIAGNOSIS: morbid obesity, depression, htn, ? DISCHARGE DIAGNOSIS: same, s/p laparoscopic sleeve gastrectomy and repair of paraesophageal and diaphragmatic hernia ? PAST SURGICAL HISTORY: tonsillectomy ? PROCEDURE: upper endoscopy, laparoscopic sleeve gastrectomy and repair of paraesophageal and diaphragmatic hernia hernia ? DISCHARGE SUMMARY: ? History of Present Illness: ? The patient is a?41 year-old woman with a BMI of?45.8 kg/m2 and associated co- morbidities as described above. The patient had extensive work-up,lost?17.6 lbs preoperatively and was electively scheduled for laparoscopic, possible open sleeve gastrectomy and gastropexy. Risks and complications of the surgery were discussed with the patient in advance, particularly the possibility of , pulmonary embolism, anastomotic leak, bleeding, bowel injury, GERD, cardiac, renal or pulmonary complications. The patient understood all the risks and was in agreement with the surgical plan. ? Hospital Course: ? The patient underwent an uneventful laparoscopic sleeve gastrectomy with gastropexy and repair of paraesophageal and diaphragmatic hernia on the day of admission. Postoperatively, the patient was transferred to the surgical floor. The patient received IV Acetaminophen and IV dilaudid for pain control. Patient was started on bariatric phase 1 diet POD #0. On postoperative day one, the joya ent was feeling well without nausea, vomiting, fevers, or tachycardia. The patient had some mild incisional pain and the abdomen was soft. ? On the morning of postoperative day one, the patient was continued on 1 ounce of water or ice every half hour. During the day, the patient did fairly well, having some incisional pain, but able to ambulate adequately and to tolerate liquids well. ? Since the patient is doing well, we decided that the patient was ready to be discharged. The patient was given instructions to follow-up with me next week and to call my office for any fever over 101, persistent abdominal pain, nausea, vomiting, GERD, symptoms of DVT such as calf tenderness, or leg swelling, or pulmonary embolism such as chest pain or shortness of breath. The patient was also instructed to drink 40-60 ounces of liquids per day using the 1-ounce cups. The patient had been given prescriptions for Tylenol for pain, Zofran prn for nausea, and pantoprazole and carafate previously. The patient was encouraged to ambulate and use the incentive spirometer. The patient was allowed to shower, but no baths, and encouraged to stay active at home. All of these instructions were given to the patient personally. All questions were answered and the patient understood all instructions, the instructions were also given to the patient in print. Time Spent with Patient Time attestation: Total time spent providing and/or coordinating discharge services: Discharge coordination time: Less than 30 minutes Quality: Stroke Does the patient have a stroke diagnosis?: No Physical Exam Vital Signs: Vital Signs: Last Vital Signs Temp 97.7 F 09/23/21 06:30 Pulse 85 09/23/21 06:30 Resp 16 09/23/21 06:30 BP 122/76 09/23/21 06:30 BMI result Body Mass Index 43.7 DS: Data Data Completed and Pending Pending studies at discharge: Pending at discharge 09/23/21 09:50 Surgical [PTH] Routine Labs on day of discharge: Laboratory Results - last 24 hr 09/23/21 06:10 Urine Test NEGATIVE Discharge Plan Discharge Patient Disposition: Home, Self-Care Discharge Diagnosis: s/p laparoscopic sleeve gastrectomy with paraesophageal and hiatal hernia repair Referrals: Deondre Hayes MD [Primary Care Provider] - 1 Week Discharge Medications: Continued pantoprazole 40 mg tablet,delayed release (DR/EC) 40 mg PO DAILY Qty: 30 2RF sucralfate 100 mg/mL suspension 10 ml PO BID Qty: 400 2RF ondansetron HCl 4 mg tablet 4 mg PO Q12H Qty: 20 0RF Discontinued cholecalciferol (vitamin D3) 50 mcg (2,000 unit) capsule 1 cap PO DAILY 0RF hydrochlorothiazide 12.5 mg tablet 12.5 mg PO DAILY 0RF polyethylene glycol 3350 [Miralax] 17 gram powder in packet 17 g PO DAILY Qty: 14 0RF Rx Instructions: Mix each packet with 8oz of water and do 7 packets on 09/21/21 and another 7 packets on 09/22/21 Discharge Orders: Discharge Order (Routine); Ordered 09/24/21 Ordered By: Lyle Tian Diet: other Activity on Discharge: No heavy lifting Stand Alone Forms: Patient Portal Discharge page Care Plan Goals: weight loss Health Concerns: morbid obesity Plan of Treatment: No tub baths, sex or returning to work until discussed at first post op appointment. No exercise, alcohol, tobacco or illegal drug use. Continue to use incentive spirometer hourly while awake. Walk in home for 5- 10 minutes every 2 hours during the first week. Follow all instructions in the bariatric handbook and call with any questions.Discharge Instructions 1. Please call your doctor or come back to the emergency room should any new symptoms arise. 2. You will receive a courtesy call from [facility] 24-48 hours after discharge. 3. Activity: abstain from alcohol, practice limited stair climbing, no bending, no driving, no exercise, no illicit substances, no lifting, no sex, no tub bath, no work. 4. Diet: continue as discussed with Dr. Garg. 5. Dressing Change/Wound Care: Your incision is covered by clear bandages and guaze underneath. If the area is tender, you may apply an ice pack for short intervals (no more than 20 minutes on, followed by at least 20 minutes off). Do not apply heat. Do not use creams, lotions, or topical antibiotics unless instructed to do so by your surgeon. These can cause infection or allergic reaction. 6. Call your doctor if: - Your temperature exceeds 101.5 F - You experience excessive pain or swelling - You have an unexpected reaction to medication - You have excessive bleeding - You experience continued vomiting/nausea - Your incision begins to separate - Your incision shows signs of infection such as increased redness, swelling, excessive pain, heat, or drainage (light blood or clear fluid is normal) 7. General instructions: No lifting greater than 5 lbs for the next 4 weeks[address] driving within 24 hours of taking narcotic pain medications. If you do not move your bowels in the next 2 days, please take milk of magnesia over the counter. Please follow the post op diet and do not advance your diet until you are seen in the office in about 2 weeks. Please walk around your home every hour or two to prevent blood clots from forming in your legs. You do not need to wake from sleeping to walk. Please sleep in a bed or couch to prevent kinking at the hips and knees. Please take your incentive spirometer (your lung battery assembler plastic) home with you and use it for the next few days to prevent pneumonias. You may shower, no hot tubs, baths or swimming pools. Please call the office with any questions or concerns such as increasing abdominal pain, fever, chills, shortness of breath, chest pain, leg pain or swelling, or redness or drainage from your incisions. Please stay on stage 3 diet which includes sugar free clear liquids such as ice pops and jello and broth and crystal light. Avoid all carbonation. Please drink 3 protein shakes with at least 25-30 grams of protein daily or 3 of the Celebrate 4:1 shakes which can be purchased in our office. The Celebrate shakes have all of the bariatric vitamins you need if you consume these shakes. If you are drinking other protein shakes, you will need to purchase the Celebrate multivitamins and calcium that we provide in the office (they will provide all the vitamins you need). Please make sure you are consuming at least 40-60 ounces of water in addition to your 3 protein shakes daily. Do not hesitate to contact the office with any questions at . The patient's medical history has been reviewed and they are considered low risk for post op DVT and therefore DVT prophylaxis is not considered necessary. Travel after surgery was reviewed. The patient has not disclosed any travel plans during the first 30 days after surgery and they have been advised that within the first 30 days after surgery any bus, plane, train or car travel over 2 hours in duration is contraindicated due to the possibility of developing blood clots from immobility. Any travel, needs to include periods of ambulation of 10 minutes in duration every 2 hours.? The patient was instructed to discuss any plans for travel during this period with their bariatric surgeon. Assessment: stable s/p laparoscopic sleeve gastrectomy with repair of paraesophageal hernia and hiatal hernia
[2021-09-23] MEDS: Famotidine/PF 20 MG/2 ML VIAL IVPUSH ×2 (11:00→21:24)
[2021-09-23 11:07] LABS: Hematocrit 44.4 % (37.0-47.0); Hemoglobin 14.1 g/dl (12.0-16.0)
[2021-09-23 11:27] LABS: Anion Gap 9 (12-20); Blood Urea Nitrogen 11 mg/dL (9-16); Calcium 8.9 mg/dL (8.4-10.2); Carbon Dioxide 28 mmol/L (22-29); Chloride 104 mmol/L (96-108); Creatinine Clr Calc Pharmacy 88.1; Estimated Glomerular Filt Rate > 60; Glucose Random 117 mg/dL (60-115); Potassium 4.3 mmol/L (3.3-5.1); Sodium 137 mmol/L (135-145)
[2021-09-23] MEDS: Lactated Ringers 1,000 ML 100 ML IVCONT ×2 (11:37→17:23)
[2021-09-23] MEDS: ceFAZolin Sodium/Dextrose,Iso 2 GM/50 ML PIGGYBACK IV (13:46)
[2021-09-23] MEDS: ondansetron HCL 4 MG/2 ML VIAL IVPUSH ×2 (15:42→21:24)
[2021-09-24] VITALS: BP 136/82; PULSE 83; RESP 18; TEMP 36.6; O2SAT 96
[2021-09-24] MEDS: HYDROmorphone HCl 0.5 MG/0.5 ML SYRINGE 0.25 MG IVPUSH (01:33)
[2021-09-24] MEDS: Lactated Ringers 1,000 ML 100 ML IVCONT (03:33)
[2021-09-24] MEDS: ondansetron HCL 4 MG/2 ML VIAL IVPUSH (05:17)
[2021-09-24 06:20] LABS: MANUAL DIFF FLAG NO
[2021-09-24 06:25] LABS: Basophils Percent Auto 0.1 % (0-2); Hematocrit 42.6 % (37.0-47.0); Hemoglobin 13.4 g/dl (12.0-16.0); Imm Gran Abs Auto 0.04 X10*3/uL (0.00-0.03); Imm Gran Pct Auto 0.3 % (0.0-0.4); Lymphocytes Absolute Auto 1.6 X10*3/uL (1.2-4.9); Lymphocytes Percent Auto 12.5 % (20-40); Mean Corpuscular HGB Conc 31.5 g/dl (31.0-35.0); Mean Corpuscular Hemoglobin 29.6 pg (27.0-33.0); Mean Corpuscular Volume 94.2 fL (80.0-98.0); Mean Platelet Volume 10.7 fL (9.4-12.3); Monocytes Absolute Auto 1.1 X10*3/uL (0.1-1.2); Monocytes Percent Auto 8.5 % (2-11); Neutrophils Absolute Auto 9.8 x10*3/uL (2.0-8.3); Neutrophils Percent Auto 78.6 % (45-73); Platelet Count 298 X10*3/uL (160-400); Red Blood Count 4.52 X10*6/uL (4.20-5.50); Red Cell Distribution Width 12.4 % (11.0-16.0); White Blood Count 12.4 X10*3/uL (4.8-10.8)
[2021-09-24 06:41] LABS: Anion Gap 11 (12-20); Blood Urea Nitrogen 9 mg/dL (9-16); Calcium 9.1 mg/dL (8.4-10.2); Carbon Dioxide 28 mmol/L (22-29); Chloride 103 mmol/L (96-108); Creatinine Clr Calc Pharmacy 96.6; Estimated Glomerular Filt Rate > 60; Glucose Random 85 mg/dL (60-115); Potassium 4.2 mmol/L (3.3-5.1); Sodium 138 mmol/L (135-145)
[2021-09-24 07:30] VITALS: O2SAT 98
--- NOTE | 2021-09-24 07:30 | PHA.MEDREC ---
Pharmacy Consult ? Medication Reconciliation Pharmacy has reviewed the medication reconciliation. Unconfirmed medication are post-op meds when dc'd from hospital. Rosa Dejesus, PharmD
[2021-09-24 08:00] VITALS: BP 135/63; PULSE 70; RESP 17; TEMP 36.9; O2SAT 97
--- NOTE | 2021-09-24 09:03 | MHC.CM.PN ---
NURSE HAZARDOUS MATERIALS DRIVER NOTE ELECTRONIC MEDICAL RECORD REVIEWED , MET WITH PATIENT , SHE REPORTED SHE IS ACTIVE INDEPENDENT IN ALL ADLS AND MOBILITY. 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
--- NOTE | 2021-09-24 12:54 | HO.POSTANES ---
Post Anesthesia Evaluation Post Anesthesia Evaluation Vital Signs: Vital Signs Temp Pulse Resp BP Pulse Ox 09/24/21 08:00 98.4 F 70 17 135/63 97 09/24/21 07:30 98 Anesthesia: General Endotracheal-GETA Mental Status: Awake Pain Control: Satisfactory Nausea/Vomiting: None Hydration: Adequate Anesthesia-Related Issues: No Anes. Related Issues
== END 2021-09-24 09:30 | disposition home or self-care (01) | DRG 403 ==
LOC: HO.SSSA 10:36 → HO.S3 10:56
PROVIDERS: Anesthesiology; Physician Assistant Surgical; Admitting Provider Surgery; PCP Internal Medicine; Visit Provider Surgery
PROC: 0DB64Z3 Excision of Stomach, Percutaneous Endoscopic Approach, Vertical (ICD-10-PCS; CPT 43845; principal; 2021-09-23 07:30)
DX: E66.01 Morbid (severe) obesity due to excess calories (principal); K44.0 Diaphragmatic hernia with obstruction, without gangrene; K76.0 Fatty (change of) liver, not elsewhere classified; F32.A Depression, unspecified; I10 Essential (primary) hypertension; Z68.41 Body mass index [BMI] 40.0-44.9, adult; Z20.822 Contact with and (suspected) exposure to COVID-19; Z87.891 Personal history of nicotine dependence; Z79.899 Other long term (current) drug therapy
CPT/HCPCS: 36415; 80048; 80053; 80061; 81025; 83036; 83525; 84443; 85014; 85018; 85025; 85610; 85730; 86140; 86850; 86900; 86901; 87635; 88307; 88342; A4649; J0131; J0690; J1100; J1170; J1200; J2250; J2405; J2550; J2765; J3010

== ENCOUNTER → 2021-09-28 14:53 | Outpatient (BNVA) | payer MEDICAID, SELFPAY | PROVIDERS: PCP Internal Medicine; Referring Provider Internal Medicine; Visit Provider Surgery | DX: E66.01 Morbid (severe) obesity due to excess calories (principal); Z98.84 Bariatric surgery status; Z98.890 Other specified postprocedural states; Z87.19 Personal history of other diseases of the digestive system; Z68.41 Body mass index [BMI] 40.0-44.9, adult | CPT/HCPCS: 99212 ==

== ENCOUNTER → 2021-11-02 12:01 | Outpatient (BNVA) | payer MEDICAID, SELFPAY | PROVIDERS: PCP Internal Medicine; Visit Provider Obstetrics & Gynecology | DX: Z13.89 Encounter for screening for other disorder (principal) ==

== ENCOUNTER → 2021-11-11 08:00 | Outpatient (BNVA) | payer MEDICAID, SELFPAY | PROVIDERS: PCP Internal Medicine; Visit Provider Physician Assistant | DX: E66.9 Obesity, unspecified (principal); Z98.84 Bariatric surgery status; Z98.890 Other specified postprocedural states; Z87.19 Personal history of other diseases of the digestive system; Z68.39 Body mass index [BMI] 39.0-39.9, adult | CPT/HCPCS: 99212 ==

== ENCOUNTER → 2021-11-24 08:08 | Outpatient (BNVA) | payer MEDICAID, SELFPAY | PROVIDERS: PCP Internal Medicine; Referring Provider Internal Medicine; Visit Provider Dietitian, Registered | DX: Z13.89 Encounter for screening for other disorder (principal) ==

== ENCOUNTER 2022-02-07 19:43 | Emergency (ER) | payer MEDICAID, SELFPAY ==
--- NOTE | ~2022-02-07 | CT_ITS ---
EXAMINATION: CT ABDOMEN AND PELVIS WITHOUT CONTRAST CLINICAL INFORMATION: Left sided and epi pain s/p gastric sleeve COMPARISON: Ultrasound abdomen 09/13/2021 TECHNIQUE: Multidetector volumetric imaging was performed from the superior aspect of the liver through the pubic symphysis. Sagittal and coronal reformatted images were obtained on the technologist's workstation. This CT examination was performed using dose optimization techniques as appropriate, variously including the following: *Automated exposure control *Adjustment of mA and/or kV according to patient size (this includes techniques or standardized protocols for targeted exams where dose is matched to indication/reason for exam; i.e. extremities or head) *Use of iterative reconstruction technique DLP: 729 mGy-cm FINDINGS: LUNG BASES: The visualized lung bases are unremarkable. LIVER, GALLBLADDER, AND BILIARY TREE: The liver is normal in size, shape, and attenuation. No focal hepatic lesion or biliary ductal dilatation is present. The gallbladder is unremarkable with no evidence of radiopaque gallstones, gallbladder wall thickening, or obvious pericholecystic inflammatory changes. PANCREAS: Unremarkable. SPLEEN: Unremarkable. ADRENAL GLANDS: Unremarkable. KIDNEYS AND URETERS: The kidneys are normal in size, shape, and attenuation. No hydronephrosis, hydroureter, or calculi seen. No perinephric stranding. BLADDER: Unremarkable. GASTROINTESTINAL TRACT: Status post gastric sleeve. The small and large bowel are unremarkable. The appendix is unremarkable. ABDOMINAL WALL: No significant hernia is appreciated. LYMPH NODES: Normal. VASCULAR: Unremarkable. PELVIC VISCERA: Right-sided ovarian cyst is present measuring 5.1 x 3.2 x 5.0 cm. A normal anteverted uterus is seen. An abnormal left adnexal mass is not seen. No free fluid is present OSSEOUS STRUCTURES: Unremarkable. CT/CT abdomen pelvis wo con IMPRESSION: Postop changes of uncomplicated gastric sleeve. 5.1 cm right ovarian cyst. A follow-up ultrasound in 3 months could be performed. Fleischner guidelines were followed.
[2022-02-07 20:31] VITALS: BP 128/84; PULSE 88; RESP 18; TEMP 36.1; O2SAT 99; BMI 36.7
[2022-02-07 20:42] LABS: MANUAL DIFF FLAG NO
[2022-02-07 20:49] LABS: Basophils Percent Auto 0.3 % (0-2); Eosinophils Absolute Auto 0.3 X10*3/uL (0.0-0.4); Eosinophils Percent Auto 3.6 % (0-4); Hemoglobin 13.6 g/dl (12.0-16.0); Imm Gran Abs Auto 0.02 X10*3/uL (0.00-0.03); Imm Gran Pct Auto 0.2 % (0.0-0.4); Lymphocytes Absolute Auto 2.5 X10*3/uL (1.2-4.9); Lymphocytes Percent Auto 27.7 % (20-40); Mean Corpuscular HGB Conc 33.2 g/dl (31.0-35.0); Mean Corpuscular Hemoglobin 30.6 pg (27.0-33.0); Mean Corpuscular Volume 92.3 fL (80.0-98.0); Mean Platelet Volume 10.3 fL (9.4-12.3); Monocytes Absolute Auto 0.8 X10*3/uL (0.1-1.2); Monocytes Percent Auto 9.1 % (2-11); Neutrophils Absolute Auto 5.3 x10*3/uL (2.0-8.3); Neutrophils Percent Auto 59.1 % (45-73); Platelet Count 309 X10*3/uL (160-400); Red Blood Count 4.44 X10*6/uL (4.20-5.50); Red Cell Distribution Width 13.2 % (11.0-16.0); White Blood Count 8.9 X10*3/uL (4.8-10.8)
[2022-02-07 20:59] LABS: Alanine Aminotransferase 16 U/L (0-31); Alkaline Phosphatase 72 U/L (39-117); Anion Gap 12 (12-20); Aspartate Amino Transferase 16 U/L (5-31); Bilirubin Direct < 0.2 mg/dL (0.0-0.5); Bilirubin Total 0.3 mg/dL (0.0-1.0); Blood Urea Nitrogen 19 mg/dL (9-16); Calcium 8.9 mg/dL (8.4-10.2); Carbon Dioxide 25 mmol/L (22-29); Chloride 107 mmol/L (96-108); Creatinine Clr Calc Pharmacy 90.6; Estimated Glomerular Filt Rate > 60; Glucose Random 102 mg/dL (60-115); Sodium 140 mmol/L (135-145); Total Protein 6.7 g/dL (6.5-8.0)
--- NOTE | 2022-02-07 22:32 | ED.ABDPAIN ---
HPI - Abdominal Pain General Chief Complaint: Abdominal Pain Stated Complaint: pain in left side Time Seen by Provider: 02/07/22 21:55 Source: patient Mode of arrival: ambulatory Limitations: no limitations History of Present Illness HPI narrative: Patient is status post gastric sleeve surgery 10/05 pain started around 16:00 today the left flank area radiating to the left upper abdomen [place] with nausea no vomiting no diarrhea feel very uncomfortable no history of kidney stone no urinary complaint no fever /chills Related Data Home Medications Medication Instructions Recorded Confirmed magnesium hydroxide 400 mg/5 mL 5 ml PO .every 3 days PRN 11/11/21 02/03/22 oral suspension (Milk of Magnesia) [id number] 45 mg-folic cap PO 01/05/22 02/03/22 acid 800 mcg-vit K 120 mcg capsule (Bariatric Multivitamins) Previous Rx's Medication Instructions Recorded calcium citrate 315 mg-vitamin D3 1 tab PO BID #60 tabs 11/11/21 5 mcg (200 unit) tablet (Calcium Citrate + D) Allergies Allergy/AdvReac Type Severity Reaction Status Date / Time No Known Allergies Allergy Verified 09/28/21 15:11 Review of Systems Review of Systems Yes all other systems are reviewed and are negative PMFSH Past Medical History Medical History Abnormal uterine bleeding Depression Encounter for IUD removal Family planning IUD check up IUD threads lost Morbid obesity Screening for STD (sexually transmitted disease) Well woman exam Surgical History Hx of tonsillectomy S/P laparoscopic sleeve gastrectomy S/P repair of paraesophageal hernia Family History Family History Mother High cholesterol Father No problems noted. Sister Breast cancer Daughter Depression History of anxiety Social History Social History Household Members: None Housing: Apartment Are you a primary career development coordinator/teacher to a significant other at home: No Do you presently have visiting nurse or other home services: No Alcohol intake: never Patient Tobacco Use Status: Former Tobacco user Quit Date: 2018 Tobacco use type: Cigarette Advance Directives: No Advance Directives Information Provided: No service: No Current occupational status: employed Physical Exam ED Vital Signs: Vital Signs - 24 hr 02/07/22 20:31 02/07/22 23:27 Temperature 96.9 F 97.6 F Pulse Rate 88 69 Respiratory Rate 18 16 Blood Pressure 128/84 134/88 Pulse Oximetry 99 100 Oxygen Delivery Method Room Air Room Air BMI result Body Mass Index 36.7 Appearance: Alert. Oriented X3. In mild distress. Eyes: No pallor/ icterus ENT: Pharynx normal. Oral Mucosa moist Neck: Normal inspection. Neck supple. CVS: Normal heart rate and rhythm. Pulses normal. Respiratory: No respiratory distress. Equal air entry bilateral, no wheezing/rales/rhonchi Abdomen: Soft , tenderness and epigastric and left flank area Bowel sounds are present, no mass palpable, L CVA tenderness Skin: Skin warm and dry. Normal skin color. Normal skin turgor. Extremities: No lower extremity edema. No calf tenderness Neuro: Oriented X 3. No motor deficit. No sensory deficit.No cerebellar signs , MDM - Abdominal Pain MDM Narrative Medical decision making narrative: Patient is stable labs CT scan negative for any acute pathology except for right ovarian cyst unable to explain cause of pain on the left upper abdomen. Will discharge patient home advised to follow up with bariatric surgeon and money room teller Lab Data Attestation: I reviewed the patient's lab results. Result diagrams: 02/07/22 20:38 02/07/22 20:38 Labs: Lab Results 02/07/22 02/07/22 02/07/22 Range/Units 20:38 20:38 22:50 WBC 8.9 (4.8-10.8) X10*3/uL RBC 4.44 (4.20-5.50) X10*6/uL Hgb 13.6 (12.0-16.0) g/dl Hct 41.0 (37.0-47.0) % MCV 92.3 (80.0-98.0) fL MCH 30.6 (27.0-33.0) pg MCHC 33.2 (31.0-35.0) g/dl RDW 13.2 (11.0-16.0) % Plt Count 309 (160-400) X10*3/uL MPV 10.3 (9.4-12.3) fL Immature Gran % (Auto) 0.2 (0.0-0.4) % Neut % (Auto) 59.1 (45-73) % Lymph % (Auto) 27.7 (20-40) % [place] % (Auto) 9.1 (2-11) % Eos % (Auto) 3.6 (0-4) % Baso % (Auto) 0.3 (0-2) % Lymph # (Auto) 2.5 (1.2-4.9) X10*3/uL [place] # (Auto) 0.8 (0.1-1.2) X10*3/uL Eos # (Auto) 0.3 (0.0-0.4) X10*3/uL Baso # (Auto) 0.0 (0.0-0.2) X10*3/uL Abs Immat Gran (auto) 0.02 (0.00-0.03) X10*3/uL Absolute Neuts (auto) 5.3 (2.0-8.3) x10*3/uL Absolute Nucleated RBC 0.000 (0.0-0.012) X10*3/uL Nucleated RBC % (auto) 0.0 (0.0-0.2) /100WBC Sodium 140 (135-145) mmol/L Potassium 4.0 (3.3-5.1) mmol/L Chloride 107 (96-108) mmol/L Carbon Dioxide 25 (22-29) mmol/L Anion Gap 12 (12-20) BUN 19 H D (9-16) mg/dL Creatinine 0.80 (0.5-1.4) mg/dL Estim Creat Clear Calc 90.6 Estimated GFR > 60 Random Glucose 102 (60-115) mg/dL Calcium 8.9 (8.4-10.2) mg/dL Total Bilirubin 0.3 (0.0-1.0) mg/dL Direct Bilirubin < 0.2 (0.0-0.5) mg/dL AST 16 (5-31) U/L ALT 16 (0-31) U/L Alkaline Phosphatase 72 (39-117) U/L Total Protein 6.7 (6.5-8.0) g/dL Albumin 4.0 (3.5-5.0) g/dL Lipase 30 (8-78) U/L Urine Color YELLOW Urine Appearance CLEAR Urine pH 5.5 (5.0-8.0) Ur Specific [place] 1.025 (1.005-1.025) Urine Protein NEG (NEG-TRACE) MG/DL Urine Glucose (UA) NEG (NEG) MG/DL Urine Ketones NEG (NEG) MG/DL Urine Blood 1+ H (NEG) Urine Nitrite NEG (NEG) Ur Leukocyte Esterase NEG (NEG) Urine RBC 0-2 (0) /HPF Urine WBC 0 (0-4) /HPF Ur Squamous Epith Cells NONE /LPF Urine Bacteria TRACE /LPF Discharge Plan Discharge Clinical Impression: Abdominal pain, Ovarian cyst Patient Disposition: Home, Self-Care Instructions: Ovarian Cyst (ED), Abdominal Pain (ED) Additional Instructions: Drink plenty of fluids Tylenol /ibuprofen for pain Follow-up with money room teller for ovarian cyst Follow-up with bariatric surgeon about the pain in am Prescriptions: No Action magnesium hydroxide [Milk of Magnesia] 400 mg/5 mL suspension 5 ml PO .every 3 days PRN calcium citrate-vitamin D3 [Calcium Citrate + D] 315 mg-5 mcg (200 unit) tablet 1 tab PO BID Qty: 60 11RF Bariatric Multivitamins 45 mg iron- 800 mcg-120 mcg capsule PO
[2022-02-07 22:55] LABS: Lipase 30 U/L (8-78)
[2022-02-07 22:58] LABS: Appearance Urine CLEAR; Color Urine YELLOW; Glucose Urine UA NEG (NEG); Leukocyte Esterase Urine NEG (NEG); Nitrite Urine NEG (NEG); PH 5.5 (5.0-8.0); Specific Gravity - Urine 1.025 (1.005-1.025); UACC Culture Trigger NO; Urine Blood 1+ (NEG); Urine Ketones NEG (NEG); Urine Protein NEG (NEG-TRACE)
[2022-02-07 23:07] LABS: WBC Urine 0 /HPF (0-4)
[2022-02-07 23:08] LABS: Bacteria Urine TRACE /LPF; RBC Urine 0-2 /HPF (0)
[2022-02-07 23:27] VITALS: BP 134/88; PULSE 69; RESP 16; TEMP 36.4; O2SAT 100
== END 2022-02-08 00:55 | disposition home or self-care (01) ==
PROVIDERS: Emergency Provider Internal Medicine
DX: N83.201 Unspecified ovarian cyst, right side (principal); R10.9 Unspecified abdominal pain; Z79.899 Other long term (current) drug therapy
CPT/HCPCS: 36415; 74176; 80053; 81001; 82248; 83690; 85025; 96361; 96374; 99283; 99284

== ENCOUNTER 2022-03-08 12:04 | Outpatient (REF) | payer MEDICAID, SELFPAY ==
[2022-03-09 12:32] LABS: CT PCR NOT DETECTED (Not Detect.); NG PCR NOT DETECTED (Not Detect.)
== END 2022-03-08 12:05 | disposition home or self-care (01) ==
LOC: HO.LAB 12:04
PROVIDERS: Visit Provider Obstetrics & Gynecology
DX: N83.209 Unspecified ovarian cyst, unspecified side (principal)
CPT/HCPCS: 87491; 87591; 99212

== ENCOUNTER 2022-03-30 15:47 | Emergency (ER) | payer MEDICAID, SELFPAY ==
[2022-03-30 15:52] VITALS: BP 150/85; PULSE 72; RESP 16; TEMP 36.8; O2SAT 97; BMI 36.3
[2022-03-30 16:18] LABS: UPreg QC Valid YES; Urine Pregnancy POSITIVE (NEGATIVE)
[2022-03-30 16:25] LABS: Hematocrit 39.8 % (37.0-47.0); Hemoglobin 13.2 g/dl (12.0-16.0); Mean Corpuscular HGB Conc 33.2 g/dl (31.0-35.0); Mean Corpuscular Hemoglobin 30.3 pg (27.0-33.0); Mean Corpuscular Volume 91.5 fL (80.0-98.0); Mean Platelet Volume 10.1 fL (9.4-12.3); Platelet Count 255 X10*3/uL (160-400); Red Blood Count 4.35 X10*6/uL (4.20-5.50); Red Cell Distribution Width 13.2 % (11.0-16.0); White Blood Count 8.3 X10*3/uL (4.8-10.8)
[2022-03-30 16:43] LABS: Anion Gap 14 (12-20); Blood Urea Nitrogen 15 mg/dL (9-16); Calcium 8.8 mg/dL (8.4-10.2); Carbon Dioxide 21 mmol/L (22-29); Chloride 108 mmol/L (96-108); Creatinine Clr Calc Pharmacy 106.4; Estimated Glomerular Filt Rate > 60; Glucose Random 92 mg/dL (60-115); Sodium 139 mmol/L (135-145)
[2022-03-30 19:59] LABS: Appearance Urine Clear; Color Urine Yellow; Glucose Urine UA Negative (Negative); Leukocyte Esterase Urine Negative (Negative); Nitrite Urine Negative (Negative); Specific Gravity - Urine 1.025 (1.005-1.025); Urine Blood Negative (Negative); Urine Ketones Negative (Negative); Urine Protein Negative (Neg-Trace)
[2022-03-30 21:10] VITALS: BP 129/79; PULSE 70; RESP 18; O2SAT 100
== END 2022-03-30 22:59 | disposition left against medical advice (07) ==
PROVIDERS: Emergency Provider Emergency Medicine
DX: N83.209 Unspecified ovarian cyst, unspecified side (principal); R10.2 Pelvic and perineal pain; Z79.899 Other long term (current) drug therapy
CPT/HCPCS: 36415; 80048; 81003; 81025; 85027; 99282; 99283

== ENCOUNTER 2022-03-31 09:36 | Outpatient (REF) | payer MEDICAID, SELFPAY ==
--- NOTE | ~2022-03-31 | US_ITS ---
EXAMINATION: US OBSTETRICAL ULTRASOUND CLINICAL INFORMATION: Pain in early . History of right ovarian cyst COMPARISON: CT scan abdomen pelvis 02/07/2022, pelvic ultrasound 08/13/2020. LMP: January. Gestational age by maternal dates is unknown. Estimated date of delivery by maternal dates is unknown. TECHNIQUE: Both transabdominal endovaginal scanning was performed. FINDINGS: There is a single intrauterine gestational sac with visible yolk sac, embryo/fetus, and cardiac activity. There is no significant subchorionic hemorrhage or hematoma. HR: 146 beats per minute. CRL (crown rump length): 1.2 cm (7 weeks 3 days +/- 4 days). ISREAL (estimated date of delivery): 11/14/2022 +/- 4 days. MATERNAL ADNEXA: The right maternal ovary measures 2.7 x 3.0 x 2.6 cm. An exophytic ovarian cyst is present measuring 5.2 x 5.4 x 4.6 cm. The left maternal ovary measures 2.5 x 1.8 x 2.5 cm. A 5.1 cm cyst was noted at the time of the prior CT scan. There is no significant solid maternal adnexal mass. No maternal pelvic ascites. US/US OB pelvic and transvaginal IMPRESSION: 1. Single intrauterine gestation with ultrasound gestational age of 7 weeks 3 days +/- 4 days. 2. Estimated date of delivery is 11/14/2022 +/- 4 days. 3. 5.4 cm right-sided ovarian cyst.
[2022-03-31 09:57] LABS: MANUAL DIFF FLAG NO
[2022-03-31 10:21] LABS: Basophils Percent Auto 0.2 % (0-2); Eosinophils Absolute Auto 0.2 X10*3/uL (0.0-0.4); Eosinophils Percent Auto 2.4 % (0-4); Imm Gran Abs Auto 0.03 X10*3/uL (0.00-0.03); Imm Gran Pct Auto 0.4 % (0.0-0.4); Lymphocytes Absolute Auto 1.7 X10*3/uL (1.2-4.9); Lymphocytes Percent Auto 21.5 % (20-40); Mean Corpuscular HGB Conc 33.3 g/dl (31.0-35.0); Mean Corpuscular Hemoglobin 30.7 pg (27.0-33.0); Mean Corpuscular Volume 92.2 fL (80.0-98.0); Mean Platelet Volume 10.6 fL (9.4-12.3); Monocytes Absolute Auto 0.5 X10*3/uL (0.1-1.2); Monocytes Percent Auto 6.5 % (2-11); Neutrophils Absolute Auto 5.6 x10*3/uL (2.0-8.3); Platelet Count 267 X10*3/uL (160-400); Red Blood Count 4.23 X10*6/uL (4.20-5.50); Red Cell Distribution Width 13.2 % (11.0-16.0); White Blood Count 8.1 X10*3/uL (4.8-10.8)
[2022-03-31 10:29] LABS: Estimated Average Glucose 97 mg/dL
[2022-03-31 10:53] LABS: Alanine Aminotransferase 11 U/L (0-31); Albumin Level 3.5 g/dL (3.5-5.0); Alkaline Phosphatase 59 U/L (39-117); Anion Gap 15 (12-20); Aspartate Amino Transferase 18 U/L (5-31); Bilirubin Total 0.4 mg/dL (0.0-1.0); Blood Urea Nitrogen 9 mg/dL (9-16); C Reactive Protein 0.77 mg/dL (< or = 0.50); Carbon Dioxide 19 mmol/L (22-29); Chloride 107 mmol/L (96-108); Cholesterol 162 mg/dL; Estimated Glomerular Filt Rate > 60; Glucose Random 99 mg/dL (60-115); HDL Cholesterol 51 mg/dL; Iron 121 mcg/dL (30-160); LDL Cholesterol Calculated 90 mg/dl; Percent Iron Saturation 41 % (15-50); Potassium 4.1 mmol/L (3.3-5.1); Sodium 137 mmol/L (135-145); Total Iron Binding Capacity 295 mcg/dL (228-428); Total Protein 6.3 g/dL (6.5-8.0); Triglycerides 106 mg/dL; Unsaturated Iron Binding 174 ug/dL
[2022-03-31 11:22] LABS: Ferritin 89 ng/mL (10-250); Folate > 20.0 ng/mL (> or = 4.0); TSH reflex Free T4 0.82 uIU/mL (0.32-4.0); Vitamin B12 941 pg/mL (200-900); Vitamin D 25-OH Total 46.1 ng/mL (>30)
[2022-03-31 11:25] LABS: Insulin 44 uU/mL (2-29)
[2022-04-01 15:22] LABS: Calcium (PTHI) 8.5 mg/dL (8.6-10.2); PTHI 20 pg/mL (16-77)
[2022-04-05 07:26] LABS: Zinc 71 mcg/dL (60-130)
[2022-04-06 19:46] LABS: Vitamin A 48 mcg/dL (38-98)
[2022-04-06 21:51] LABS: Vitamin B1 16 nmol/L (8-30)
== END 2022-03-31 09:37 | disposition home or self-care (01) ==
LOC: HO.US 09:36
PROVIDERS: Physician Assistant Surgical; Visit Provider Obstetrics & Gynecology
DX: O20.9 Hemorrhage in early pregnancy, unspecified (principal); Z98.84 Bariatric surgery status
CPT/HCPCS: 36415; 76801; 76817; 80053; 80061; 82306; 82607; 82728; 82746; 83036; 83525; 83540; 83970; 84425; 84443; 84590; 84630; 84702; 85025; 86140; 99212

== ENCOUNTER 2022-03-31 12:47 | Outpatient (REF) | payer MEDICAID, SELFPAY ==
[2022-03-31 16:06] LABS: CT PCR NOT DETECTED (Not Detect.); NG PCR NOT DETECTED (Not Detect.)
== END 2022-03-31 12:48 | disposition home or self-care (01) ==
LOC: HO.LNP 12:47
PROVIDERS: Visit Provider Obstetrics & Gynecology
DX: Z11.3 Encounter for screening for infections with a predominantly sexual mode of transmission (principal)
CPT/HCPCS: 87491; 87591

== ENCOUNTER → 2022-04-04 14:48 | Outpatient (BNVA) | payer MEDICAID, SELFPAY | PROVIDERS: Visit Provider Dietitian, Registered | DX: E66.01 Morbid (severe) obesity due to excess calories (principal); Z68.35 Body mass index [BMI] 35.0-35.9, adult | CPT/HCPCS: 97803 ==

== ENCOUNTER → 2022-04-13 09:01 | Outpatient (BNVA) | payer MEDICAID, SELFPAY | PROVIDERS: PCP Internal Medicine; Visit Provider Physician Assistant Surgical | DX: E66.9 Obesity, unspecified (principal); Z68.36 Body mass index [BMI] 36.0-36.9, adult; Z87.19 Personal history of other diseases of the digestive system; Z98.84 Bariatric surgery status; Z98.890 Other specified postprocedural states | CPT/HCPCS: 99212 ==

== ENCOUNTER 2022-05-04 09:44 | Outpatient (REF) | payer MEDICAID, SELFPAY ==
[2022-05-04 14:38] LABS: CT PCR NOT DETECTED (Not Detect.); NG PCR NOT DETECTED (Not Detect.)
== END 2022-05-04 09:45 | disposition home or self-care (01) ==
LOC: HO.LNP 09:44
PROVIDERS: Visit Provider Advanced Practice Midwife
DX: Z23 Encounter for immunization (principal); O09.521 Supervision of elderly multigravida, first trimester; Z3A.12 12 weeks gestation of pregnancy
CPT/HCPCS: 81003; 87491; 87591; 90471; 90686; 99212

== ENCOUNTER → 2022-05-06 09:01 | Outpatient (BNVA) | payer MEDICAID, SELFPAY | PROVIDERS: PCP Internal Medicine; Visit Provider Dietitian, Registered | DX: O99.211 Obesity complicating pregnancy, first trimester (principal); E66.01 Morbid (severe) obesity due to excess calories; Z3A.12 12 weeks gestation of pregnancy | CPT/HCPCS: 97803 ==

== ENCOUNTER → 2022-05-09 09:10 | Outpatient (BNVA) | payer MEDICAID, SELFPAY | PROVIDERS: PCP Internal Medicine; Visit Provider Obstetrics & Gynecology | DX: Z34.81 Encounter for supervision of other normal pregnancy, first trimester (principal); Z3A.13 13 weeks gestation of pregnancy | CPT/HCPCS: 99212 ==

== ENCOUNTER → 2022-06-01 09:37 | Outpatient (BNVA) | payer MEDICAID, SELFPAY | PROVIDERS: PCP Internal Medicine; Visit Provider Advanced Practice Midwife | DX: O09.522 Supervision of elderly multigravida, second trimester (principal); Z3A.16 16 weeks gestation of pregnancy | CPT/HCPCS: 99212 ==

== ENCOUNTER → 2022-06-06 08:42 | Outpatient (BNVA) | payer MEDICAID, SELFPAY | PROVIDERS: Visit Provider Obstetrics & Gynecology | DX: Z34.82 Encounter for supervision of other normal pregnancy, second trimester (principal); Z3A.17 17 weeks gestation of pregnancy | CPT/HCPCS: 99212 ==

== ENCOUNTER 2022-06-11 07:50 | Outpatient (REF) | payer MEDICAID, SELFPAY ==
[2022-06-11 08:26] LABS: Hematocrit 33.5 % (37.0-47.0); Hemoglobin 11.3 g/dl (12.0-16.0); Mean Corpuscular HGB Conc 33.7 g/dl (31.0-35.0); Mean Corpuscular Hemoglobin 31.2 pg (27.0-33.0); Mean Corpuscular Volume 92.5 fL (80.0-98.0); Mean Platelet Volume 10.4 fL (9.4-12.3); Platelet Count 255 X10*3/uL (160-400); Red Blood Count 3.62 X10*6/uL (4.20-5.50); Red Cell Distribution Width 12.8 % (11.0-16.0)
[2022-06-11 09:33] LABS: Amphetamine Screen Urine Not Detected (Not Detect); Barbiturates, Urine Not Detected (Not Detect); Benzodiazepines Screen Urine Not Detected (Not Detect); Cannabinoid Screen Urine Not Detected (Not Detect); Cocaine Screen Urine Not Detected (Not Detect); Fentanyl, urine Not Detected (Not Detect); Opiate Screen Urine Not Detected (Not Detect); Phencyclidine Screen Urine Not Detected (Not Detect)
[2022-06-13 09:52] LABS: HBsAGNum1 0.24 S/CO (0.00-0.99); HIV AB/AG Nonreactive (Nonreactive); HIV Num 1 0.06 S/CO (0.00-0.99); Hepatitis B Surface Antigen Negative (Negative); ~HepC Num1 0.05 S/CO (0.00-0.79); ~Hepatitis C Antibody Nonreactive (Nonreactive)
[2022-06-13 10:20] LABS: Syphilis Screen Nonreactive (Nonreactive)
[2022-06-13 18:35] LABS: Rubella IgG Antibody 4.68 Index
[2022-06-18 17:07] LABS: CF Ethnicity NG; Cystic Fibrosis NEGATIVE (NEGATIVE)
== END 2022-06-11 07:51 | disposition home or self-care (01) ==
LOC: HO.LAB 07:50
PROVIDERS: Visit Provider Obstetrics & Gynecology
DX: O09.529 Supervision of elderly multigravida, unspecified trimester (principal)
CPT/HCPCS: 80307; 81220; 85027; 86762; 86780; 86787; 86803; 87086; 87340; 87389

== ENCOUNTER → 2022-06-13 08:41 | Outpatient (BNVA) | payer MEDICAID, SELFPAY | PROVIDERS: Visit Provider Obstetrics & Gynecology | DX: O09.522 Supervision of elderly multigravida, second trimester (principal); Z3A.18 18 weeks gestation of pregnancy | CPT/HCPCS: 99212 ==

== ENCOUNTER → 2022-06-17 08:42 | Outpatient (BNVA) | payer MEDICAID, SELFPAY | PROVIDERS: Visit Provider Dietitian, Registered | DX: O99.842 Bariatric surgery status complicating pregnancy, second trimester (principal); Z3A.18 18 weeks gestation of pregnancy; Z90.3 Acquired absence of stomach [part of]; Z71.3 Dietary counseling and surveillance | CPT/HCPCS: 97803 ==

== ENCOUNTER → 2022-08-05 08:27 | Outpatient (BNVA) | payer MEDICAID, SELFPAY | PROVIDERS: PCP Registered Nurse; Visit Provider Dietitian, Registered | DX: O99.212 Obesity complicating pregnancy, second trimester (principal); E66.01 Morbid (severe) obesity due to excess calories; Z68.38 Body mass index [BMI] 38.0-38.9, adult; O99.842 Bariatric surgery status complicating pregnancy, second trimester; O09.512 Supervision of elderly primigravida, second trimester; Z3A.25 25 weeks gestation of pregnancy; Z71.3 Dietary counseling and surveillance | CPT/HCPCS: 97803 ==

== ENCOUNTER 2022-08-18 07:04 | Outpatient (REF) | payer MEDICAID, SELFPAY ==
[2022-08-18 07:17] LABS: MANUAL DIFF FLAG NO
[2022-08-18 07:46] LABS: Basophils Percent Auto 0.3 % (0-2); Eosinophils Absolute Auto 0.1 X10*3/uL (0.0-0.4); Hematocrit 32.5 % (37.0-47.0); Hemoglobin 10.6 g/dl (12.0-16.0); Imm Gran Abs Auto 0.05 X10*3/uL (0.00-0.03); Imm Gran Pct Auto 0.7 % (0.0-0.4); Lymphocytes Absolute Auto 1.4 X10*3/uL (1.2-4.9); Lymphocytes Percent Auto 20.8 % (20-40); Mean Corpuscular HGB Conc 32.6 g/dl (31.0-35.0); Mean Corpuscular Hemoglobin 30.6 pg (27.0-33.0); Mean Corpuscular Volume 93.9 fL (80.0-98.0); Mean Platelet Volume 10.4 fL (9.4-12.3); Monocytes Absolute Auto 0.5 X10*3/uL (0.1-1.2); Monocytes Percent Auto 7.6 % (2-11); Neutrophils Absolute Auto 4.8 x10*3/uL (2.0-8.3); Neutrophils Percent Auto 69.6 % (45-73); Platelet Count 244 X10*3/uL (160-400); Red Blood Count 3.46 X10*6/uL (4.20-5.50); Red Cell Distribution Width 13.2 % (11.0-16.0); White Blood Count 6.8 X10*3/uL (4.8-10.8)
[2022-08-18 07:58] LABS: Estimated Average Glucose 88 mg/dL; Hemoglobin A1c % 4.7 %
[2022-08-18 08:21] LABS: Alanine Aminotransferase 9 U/L (0-31); Albumin Level 3.2 g/dL (3.5-5.0); Alkaline Phosphatase 59 U/L (39-117); Anion Gap 11 (12-20); Aspartate Amino Transferase 12 U/L (5-31); Bilirubin Total 0.3 mg/dL (0.0-1.0); Blood Urea Nitrogen 8 mg/dL (9-16); C Reactive Protein 0.64 mg/dL (< or = 0.50); Calcium 8.7 mg/dL (8.4-10.2); Carbon Dioxide 23 mmol/L (22-29); Chloride 108 mmol/L (96-108); Cholesterol 288 mg/dL; Estimated Glomerular Filt Rate > 60; Glucose Random 75 mg/dL (60-115); HDL Cholesterol 77 mg/dL; Iron 119 mcg/dL (30-160); LDL Cholesterol Calculated 162 mg/dl; Percent Iron Saturation 29 % (15-50); Sodium 138 mmol/L (135-145); Total Iron Binding Capacity 404 mcg/dL (228-428); Total Protein 5.6 g/dL (6.5-8.0); Triglycerides 247 mg/dL; Unsaturated Iron Binding 285 ug/dL
[2022-08-18 08:49] LABS: Ferritin 32 ng/mL (10-250); Insulin 7 uU/mL (2-29); TSH reflex Free T4 0.95 uIU/mL (0.32-4.0); Vitamin B12 787 pg/mL (200-900); Vitamin D 25-OH Total 43.1 ng/mL (>30)
[2022-08-21 21:48] LABS: Zinc 55 mcg/dL (60-130)
[2022-08-22 15:44] LABS: Calcium (PTHI) 8.8 mg/dL (8.6-10.2); PTHI 10 pg/mL (16-77)
[2022-08-24 15:54] LABS: Vitamin A 40 mcg/dL (38-98)
[2022-08-27 11:23] LABS: Vitamin B1 20 nmol/L (8-30)
== END 2022-08-18 07:05 | disposition home or self-care (01) ==
LOC: HO.LAB 07:04
PROVIDERS: Visit Provider Physician Assistant Surgical
DX: Z98.84 Bariatric surgery status (principal)
CPT/HCPCS: 36415; 80053; 80061; 82306; 82607; 82728; 82746; 83036; 83525; 83540; 83970; 84425; 84443; 84590; 84630; 85025; 86140

== ENCOUNTER → 2022-10-14 08:24 | Outpatient (BNVA) | payer MEDICAID, SELFPAY | PROVIDERS: PCP Registered Nurse; Referring Provider Registered Nurse; Visit Provider Dietitian, Registered | DX: O09.523 Supervision of elderly multigravida, third trimester (principal); O24.419 Gestational diabetes mellitus in pregnancy, unspecified control; O99.213 Obesity complicating pregnancy, third trimester; E66.9 Obesity, unspecified; Z79.82 Long term (current) use of aspirin; Z3A.35 35 weeks gestation of pregnancy | CPT/HCPCS: 97803 ==

== ENCOUNTER → 2022-10-27 08:24 | Outpatient (BNVA) | payer MEDICAID, SELFPAY | PROVIDERS: PCP Registered Nurse; Visit Provider Physician Assistant Surgical | DX: O09.519 Supervision of elderly primigravida, unspecified trimester (principal); O99.213 Obesity complicating pregnancy, third trimester; E66.9 Obesity, unspecified; Z98.84 Bariatric surgery status; Z3A.00 Weeks of gestation of pregnancy not specified | CPT/HCPCS: 99212 ==

== ENCOUNTER → 2023-01-19 08:31 | Outpatient (BNVA) | payer MEDICAID, SELFPAY | PROVIDERS: PCP Registered Nurse; Visit Provider Dietitian, Registered | DX: E66.9 Obesity, unspecified (principal); Z68.38 Body mass index [BMI] 38.0-38.9, adult | CPT/HCPCS: 97803 ==

== ENCOUNTER 2023-04-19 08:48 | Outpatient (AMB) | payer MEDICAID, SELFPAY ==
--- NOTE | 2023-04-19 08:35 | MHC.AMNUTRGE ---
Intake VS Expanded 04/19/23 08:49 Height 5 ft Weight 185 lb BMI 36.1 Intake Visit Reasons: VIDEO PO LSG 09/23/21 Allergies No Known Allergies Allergy (Verified 10/27/22 08:31) HPI Nutrition Presentation Details LSG 09/23/[address] Garg Preop weight 224# weight at 5wks PO? 208# weight at 3.5MO PO 193# weight at 6.5 MO PO 180# weight at 12wks gestation 190# Weight right before delivery 214# weight MO post 195# current weight 185# Reason for consult other () Diet Assmnt Details Pt is about 6 MO . Got the Ensure Pranav and liked them. hasn't re;-purchased. hasn't gone to the grocery store in awhile. reports she has sometimes been forgetting to eat, or will have very quick meals such as cereal or tuna. dinner is a consistent meal - protein and veg, occasional carb such as potato She currently lives with her boyfriend/father of the . He is very supportive. Reminds her to eat, reminds her of appointments, equal partner in watching baby. Not exercising now due to feeling very tired, she notes she is not getting enough protein and knows this is why she feels tired Throughout , her vitamin regimen was adequate . Bariatric , and 800mg calcium, iron supplements. Labs have been ordered but she hasn't had the time to get them done Taking celebrate ONE 18 now and taking 2 celebrate calcium tablets 200mg each = total 400mg daily - reports she is very consistent Pt had Gestational diabetes, no DM now. Diagnosis Nutrition problem #1 overweight/obesity As related to (etiology) #1 excess energy intake and physical inactivity As evidenced by (sign/symptom) #1 high BMI Monitoring/Goals Nutrition problem monitoring total energy intake, level of knowledge/skill, total PRO intake, total CHO intake, weight and oral fluids Outcome progress progressing Learning/Education Readiness to learn excellent Stages of change action Most Recent Diabetes Results: Cholesterol 288 mg/dL 08/18/22 HDL Cholesterol 77 mg/dL 08/18/22 Triglycerides 247 mg/dL 08/18/22 Creatinine 0.65 mg/dL (0.5-1.4) 08/18/22 Blood Urea Nitrogen 8 mg/dL (9-16) L 08/18/22 Sodium 138 mmol/L (135-145) 08/18/22 Potassium 4.0 mmol/L (3.3-5.1) 08/18/22 Chloride 108 mmol/L (96-108) 08/18/22 Carbon Dioxide 23 mmol/L (22-29) 08/18/22 Calcium 8.7 mg/dL (8.4-10.2) 08/18/22 AST 12 U/L (5-31) 08/18/22 ALT 9 U/L (0-31) 08/18/22 Total Protein 5.6 g/dL (6.5-8.0) L 08/18/22 Albumin 3.2 g/dL (3.5-5.0) L 08/18/22 [facility] Medical History Abnormal uterine bleeding Depression Morbid obesity Surgical History Hx of tonsillectomy S/P laparoscopic sleeve gastrectomy S/P repair of paraesophageal hernia Family History Mother High cholesterol Father No problems noted. 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 recommended taking advantage of shopping online. stock house with high protein non perishables. she will gets labs done - order is in. will f/u with PA next for 2 year appt, then me 3-6 MO later (or as desired by pt) . Encouraged communication as needed Telehealth Telehealth Location of provider rendering services: practice address Location of patient: address on file Patient Identification confirmed using: Name, : Yes Telehealth method: video Patient verbally consented to treatment: Yes Patient verbally consented to billing insurance company: Yes Patient informed of any privacy concerns related to visit: Yes Minutes spent on Phone/Video with Pt.: 30 Coding Level of Care Code Nutr Indiv Subseq ([id number]) Diagnoses Obesity (BMI 30-39.9) E66.9 Time Spent (min) 30
[2023-04-19 08:49] VITALS: BMI 36.1
== END 2023-04-19 08:54 | disposition home or self-care (01) ==
LOC: HO.HBS 08:48
PROVIDERS: PCP Registered Nurse; Visit Provider Dietitian, Registered
DX: E66.9 Obesity, unspecified (principal)

== ENCOUNTER → 2023-04-19 08:48 | Outpatient (BNVA) | payer MEDICAID, SELFPAY | PROVIDERS: PCP Registered Nurse; Visit Provider Dietitian, Registered | DX: E66.9 Obesity, unspecified (principal); Z68.36 Body mass index [BMI] 36.0-36.9, adult; Z98.84 Bariatric surgery status; Z71.3 Dietary counseling and surveillance | CPT/HCPCS: 97803 ==

== ENCOUNTER 2023-06-06 10:30 | Outpatient (AMB) | payer MEDICAID, SELFPAY ==
--- NOTE | 2023-06-06 10:33 | A.OFFVIS_ITS ---
Intake VS Expanded 06/06/23 10:41 BP 149/73 H Blood Pressure Location Rt brachial Blood Pressure Position Sitting Pulse 106 H Pulse Source Pulse Oximeter Temp 96.9 F Temperature Source Temporal Artery Scan Pulse Oximetry 99 Oxygen Delivery Method Room Air Height 5 ft 1 in Weight 193 lb BMI 36.5 Body Fat % 41.6 Body Fat Mass 80.2 Fat Free Mass 112.6 Visceral Fat Rating 11.0 Body Water % 41.7 Body Water Mass 80.4 Muscle Mass/Score 107.0 Basal Metabolic Rate/Score 1,571 Intake Visit Reasons: (OV) PO LSG 09/23/21 Allergies No Known Allergies Allergy (Verified 06/06/23 10:37) Medication List - Last Reconciled 06/06/23 by XAVI Galeano blood sugar diagnostic (FreeStyle Lite Strips) QID blood-glucose meter (FreeStyle Lite Meter kit) QID calcium citrate-vitamin D3 315 mg-5 mcg (200 unit) (Calcium Citrate + D) 1 tab PO BID lancets (FreeStyle Lancets) qid jwbecpkeijjq-oxe-yjvd-FA-vit K 45 mg iron- 800 mcg-120 mcg (Bariatric Multivitamins) caps PO HPI HPI Comments History of Present Illness Details This?is a?43?yo female who is s/p LSG 09/23/2021. Presents for 20 month post op visit. Weight at last visit on 04/19/2023 was 185 pounds with a BMI of 36.1, weight today is 193 pounds, representing an 8 pound weight gain with a BMI today of 37.7.? No complaints of nausea, emesis, abdominal pain or reflux, or constipation. Pt reports she recently quit smoking 1.5 months ago. Baby is 6 months old now. She is working 3 jobs but is planning to get rid of one job. 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 Female Reproductive History Menstrual Age of Menarche: 13 Physical Exam Const General: cooperative, comfortable and no acute distress Orientation/consciousness: patient oriented x3 GI Other: soft, nontender, nondistended, incisions well healed, no hernia, no masses Neuro General: patient oriented x3 Assessment & Plan Assessment & Plan (1) Obesity: Code(s): E66.9 - Obesity, unspecified (2) S/P laparoscopic sleeve gastrectomy: Comment: 09/23/21 Code(s): Z98.84 - Bariatric surgery status Plan Breakfast- 2 eggs w/ cottage cheese Lunch- Premier shake and can add veg Dinner- protein (6 forkfuls chicken or pork) with vegetables Pt still has not had labs drawn, cited not having enough time- will plan to go this week. RTC in July, followed by September for 2 year visit, then follow up with RD 3-6 months after. Patient is obese and is not considered stable at this time. I spent a total of 30 minutes reviewing/updating records, examining the patient and counseling the patient on weight management as detailed above. Coding Level of Care Code Est Pt Level 4 (18736) Diagnoses Obesity E66.9 S/P laparoscopic sleeve gastrectomy Z98.84
[2023-06-06 10:41] VITALS: BP 149/73; PULSE 106; TEMP 36.1; O2SAT 99; BMI 36.5
== END 2023-06-06 11:16 | disposition home or self-care (01) ==
PROVIDERS: PCP Registered Nurse; Visit Provider Physician Assistant Surgical
DX: E66.9 Obesity, unspecified (principal); Z98.84 Bariatric surgery status
CPT/HCPCS: 99214

== ENCOUNTER → 2023-06-06 10:30 | Outpatient (BNVA) | payer MEDICAID, SELFPAY | PROVIDERS: PCP Registered Nurse; Visit Provider Physician Assistant Surgical | DX: E66.9 Obesity, unspecified (principal); Z98.84 Bariatric surgery status; Z68.36 Body mass index [BMI] 36.0-36.9, adult | CPT/HCPCS: 99212 ==

== ENCOUNTER 2023-06-16 06:53 | Outpatient (REF) | payer MEDICAID, SELFPAY ==
[2023-06-16 07:09] LABS: MANUAL DIFF FLAG NO
[2023-06-16 07:43] LABS: Basophils Percent Auto 0.7 % (0-2); Eosinophils Absolute Auto 0.1 X10*3/uL (0.0-0.4); Eosinophils Percent Auto 2.4 % (0-4); Hematocrit 42.3 % (37.0-47.0); Imm Gran Abs Auto 0.02 X10*3/uL (0.00-0.03); Imm Gran Pct Auto 0.3 % (0.0-0.4); Lymphocytes Absolute Auto 1.6 X10*3/uL (1.2-4.9); Lymphocytes Percent Auto 26.9 % (20-40); Mean Corpuscular HGB Conc 33.1 g/dl (31.0-35.0); Mean Corpuscular Hemoglobin 30.6 pg (27.0-33.0); Mean Corpuscular Volume 92.4 fL (80.0-98.0); Mean Platelet Volume 10.7 fL (9.4-12.3); Monocytes Absolute Auto 0.5 X10*3/uL (0.1-1.2); Monocytes Percent Auto 8.5 % (2-11); Neutrophils Absolute Auto 3.6 x10*3/uL (2.0-8.3); Neutrophils Percent Auto 61.2 % (45-73); Platelet Count 278 X10*3/uL (160-400); Red Blood Count 4.58 X10*6/uL (4.20-5.50); Red Cell Distribution Width 13.2 % (11.0-16.0); White Blood Count 5.9 X10*3/uL (4.8-10.8)
[2023-06-16 07:57] LABS: Estimated Average Glucose 100 mg/dL; Hemoglobin A1c % 5.1 % (<6.0)
[2023-06-16 08:16] LABS: Alanine Aminotransferase 12 U/L (0-31); Albumin Level 4.1 g/dL (3.5-5.0); Alkaline Phosphatase 65 U/L (39-117); Anion Gap 12 (12-20); Aspartate Amino Transferase 16 U/L (5-31); Bilirubin Total 0.5 mg/dL (0.0-1.0); Blood Urea Nitrogen 12 mg/dL (9-16); C Reactive Protein 0.16 mg/dL (< or = 0.50); Carbon Dioxide 24 mmol/L (22-29); Chloride 109 mmol/L (96-108); Cholesterol 206 mg/dL (<200); Estimated Glomerular Filt Rate > 60; Glucose Random 87 mg/dL (60-115); HDL Cholesterol 62 mg/dL (>40); Iron 97 mcg/dL (30-160); LDL Cholesterol Calculated 124 mg/dL (<100); Percent Iron Saturation 31 % (15-50); Potassium 3.8 mmol/L (3.3-5.1); Sodium 141 mmol/L (135-145); Total Iron Binding Capacity 313 mcg/dL (228-428); Total Protein 7.1 g/dL (6.5-8.0); Triglycerides 104 mg/dL (<150); Unsaturated Iron Binding 216 ug/dL
[2023-06-16 08:41] LABS: Ferritin 24 ng/mL (10-250); Insulin 8 uU/mL (2-29); TSH reflex Free T4 1.09 uIU/mL (0.32-4.0); Vitamin D 25-OH Total 44.1 ng/mL (>30)
[2023-06-16 08:42] LABS: Folate 12.6 ng/mL (> or = 4.0); Vitamin B12 1068 pg/mL (200-900)
[2023-06-20 01:45] LABS: Zinc 83 mcg/dL (60-130)
[2023-06-21 14:59] LABS: Vitamin B1 14 nmol/L (8-30)
[2023-06-21 17:14] LABS: Vitamin A 65 mcg/dL (38-98)
== END 2023-06-16 06:54 | disposition home or self-care (01) ==
LOC: HO.LAB 06:53
PROVIDERS: Visit Provider Physician Assistant Surgical
DX: Z98.84 Bariatric surgery status (principal)
CPT/HCPCS: 36415; 80053; 80061; 82306; 82607; 82728; 82746; 83036; 83525; 83540; 84425; 84443; 84590; 84630; 85025; 86140

== ENCOUNTER 2023-06-30 10:50 | Outpatient (REF) | payer MEDICAID, SELFPAY ==
--- NOTE | ~2023-06-30 | MM_ITS ---
EXAMINATION: MM SCREENING DIGITAL BREAST TOMOSYNTHESIS, BILATERAL CLINICAL INFORMATION: Screening. Asymptomatic. COMPARISON: Mammography: This study is compared with prior exams dating back to 2020. TECHNIQUE: Digital breast tomosynthesis is performed in both the craniocaudal and mediolateral oblique views along with computer-aided detection (CAD). Synthesized 2D images are generated from the tomosynthesis. FINDINGS: The breasts are almost entirely fatty (ACR BI-RADS breast composition Category a). There are no significant masses, abnormal calcifications, or other abnormalities. MM/MM tomosynthesis screening BI IMPRESSION: No mammographic evidence of malignancy. ASSESSMENT: BI-RADS BI-RADS 1 - Negative RECOMMENDATION: Routine annual mammography screening. 1 year F/U This examination should not preclude the clinical evaluation of a suspicious palpable abnormality. This patient's information was entered into a reminder system with a target due date for their next mammogram.
== END 2023-06-30 10:51 | disposition home or self-care (01) ==
LOC: HO.MAMMO 10:50
PROVIDERS: PCP Registered Nurse; Visit Provider Registered Nurse
DX: Z12.31 Encounter for screening mammogram for malignant neoplasm of breast (principal)
CPT/HCPCS: 77063; 77067

== ENCOUNTER → 2023-06-30 11:15 | Outpatient (BNV) | payer MEDICAID, SELFPAY | PROVIDERS: PCP Registered Nurse; Visit Provider Radiology Diagnostic Radiology | DX: Z12.31 Encounter for screening mammogram for malignant neoplasm of breast (principal) | CPT/HCPCS: 77063; 77067 ==

== ENCOUNTER 2023-08-03 09:51 | Outpatient (AMB) | payer MEDICAID, SELFPAY ==
--- NOTE | 2023-08-03 09:34 | A.OFFVIS_ITS ---
Intake Intake Visit Reasons: (telephone) PO LSG 09/23/21 Allergies No Known Allergies Allergy (Verified 06/06/23 10:37) Medication List - Last Reconciled 08/03/23 by XAVI Galeano blood sugar diagnostic (FreeStyle Lite Strips) QID blood-glucose meter (FreeStyle Lite Meter kit) QID calcium citrate-vitamin D3 315 mg-5 mcg (200 unit) (Calcium Citrate + D) 1 tab PO BID lancets (FreeStyle Lancets) qid ipofnjsxyvlc-yko-celz-FA-vit K 45 mg iron- 800 mcg-120 mcg (Bariatric Multivitamins) caps PO HPI HPI Comments History of Present Illness Details This?is a?43?yo female who is s/p LSG 09/23/2021. Presents for 1 year 10 month post op visit. Weight at last visit on 06/06/2023 was 193 pounds with a BMI of 36.5, weight today is same.? No complaints of nausea, emesis, abdominal pain or reflux, or constipation. 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 Continues to be smoke free, now 3.5 months. 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 Congratulated her on her new habit of exercising in the mornings. Reviewed labs, anemia has improved, cholesterol improved, no longer zinc deficient. Continue current vitamin regimen. RTC 2 months for 2 year visit, then pt would like to follow up again with RD. Patient is obese and is not considered stable at this time. I spent a total of 30 minutes reviewing/updating records, examining the patient and counseling the patient on weight management as detailed above. Telehealth Telehealth Location of provider rendering services: practice address Location of patient: address on file Patient Identification confirmed using: Name, : Yes Telehealth method: voice only Patient verbally consented to treatment: Yes Patient verbally consented to billing insurance company: Yes Patient informed of any privacy concerns related to visit: Yes Minutes spent on Phone/Video with Pt.: 12 Coding Level of Care Code Tele Est Pt Level 4 (16027) Diagnoses Obesity E66.9 S/P laparoscopic sleeve gastrectomy Z98.84
== END 2023-08-03 10:03 | disposition home or self-care (01) ==
LOC: HO.HBS 09:51
PROVIDERS: PCP Registered Nurse; Visit Provider Physician Assistant Surgical
DX: E66.9 Obesity, unspecified (principal); Z98.84 Bariatric surgery status; Z90.3 Acquired absence of stomach [part of]; Z68.36 Body mass index [BMI] 36.0-36.9, adult
CPT/HCPCS: 99214

== ENCOUNTER → 2023-08-03 09:51 | Outpatient (BNVA) | payer MEDICAID, SELFPAY | PROVIDERS: PCP Registered Nurse; Visit Provider Physician Assistant Surgical ==

== ENCOUNTER 2024-08-01 08:13 | Outpatient (REF) | payer MEDICAID, SELFPAY | END 2024-08-01 08:14 | disposition home or self-care (01) | LOC: HO.MAMMO 08:13 | PROVIDERS: PCP Registered Nurse; Visit Provider Registered Nurse | DX: Z12.31 Encounter for screening mammogram for malignant neoplasm of breast (principal) | CPT/HCPCS: 77063; 77067 ==

== ENCOUNTER 2024-10-18 10:04 | Outpatient (REF) | payer MEDICAID, SELFPAY ==
--- NOTE | ~2024-10-18 | XR_ITS ---
EXAMINATION: XR TOES, RIGHT CLINICAL INFORMATION: PAIN COMPARISON: None available. TECHNIQUE: 4 views of the right toes were obtained. FINDINGS: Oblique nondisplaced intra-articular fracture of the distal one half of the proximal phalanx of the fifth digit. Fracture extends into the PIP joint. No displacement. No dislocation. 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 No additional fractures or focal bone lesions. No malalignment. Preserved joint spaces. There is soft tissue swelling of the fifth digit. XR/XR toe RT min 2V IMPRESSION: Oblique nondisplaced intra-articular fracture of the distal one half of the proximal phalanx of the fifth digit. Electronically signed by: Ten Faye MD 10/18/2024 01:30 PM EDT
--- NOTE | ~2024-10-18 | XR_ITS ---
EXAMINATION: XR ANKLE, RIGHT CLINICAL INFORMATION: injury, right lateral ankle pain COMPARISON: None available. TECHNIQUE: AP, lateral, and mortise views of the right ankle. FINDINGS: No fracture, dislocation, or suspicious bone lesion. Normal bone mineralization. Normal alignment. Talar dome intact. Mortise is preserved. Mild degenerative changes in the ankle joint. Small dorsal calcaneal spur. Mild pes planus. There is a probable ankle joint effusion. Soft tissues appear normal. XR/XR ankle RT min 3V IMPRESSION: 1. No acute fracture or dislocation. 2. 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 3. Mild pes planus. Electronically signed by: Ten Faye MD 10/18/2024 01:33 PM EDT
--- OUTSIDE RECORDS SUMMARY | 2024-10-18 11:26 | XMS_ITS | Encounter Summary ---
Author Organization [employer] Address [address] [facility] 7 [place] [address] Care Team Providers Care Medical Technologist Microbiology Name Role Phone [place] Primary Care Provider [phone] Reason for Visit * Reason Onset Date Comments Referral 05/14/2024 Encounter Details Date Type Department Care Team ([facility] st Contact Info) Description 05/14/2024 Telephone [facility] [address] [place], [place] [phone] [facility] [address] [place], [place] [phone] Referral Social History Tobacco Use Types Packs/Day Years Used Date Smoking Tobacco: Never Assessed Housing Stability Answer Date Recorded What is your housing situation today? I have manuel sanchez 03/29/[address] you li ve. Do you have problems with any of the following? None of the above 03/29/2024 Food Insecurity Answer Date Recorded Within the past 12 months, y ou worried that your food would run out before you got money to buy more: Never True 03/29/2024 Within the past 12 months,th e food you bought just didn't last and you didn't have enough money to get more: Never True Transportation Answer Date Recorded In the past 12 months, has l ack of transportation kept you from medical appts, meetings, work or from getting things needed for daily living? No 03/29/2024 Utilities Answer Date Recorded In the past 12 months, has t he electric, gas, oil or water company threatened to shut off services in your home? No 03/29/2024 Internet Access Answer Date Recorded Internet Access Q1 Yes 03/29/2024 Internet Access Q2 Not on file 03/29/2024 Comments Unknown Sex and Gender Information Value Date Recorded Sex Assigned at Female 05/16/2022 10:16 AM EDT Legal Sex Female 10:16 AM EDT Gender Identity Female 05/16/2022 10:16 AM EDT Sexual Orientation Choose not to disclose 2021 10:16 AM EDT documented as of this encounter Miscellaneous Notes * Telephone Encounter - Nirmlaa Duran RN - 05/14/2024 2:14 PM EDT TC placed to pt [phone] in regards to below message. Pt reports her previous eye doctor offices do not accept her insurance anymore. Pt reports this office does and they can get her in for 05/22/24 however they need a referral. Pt reports she wears glasses however needs a new RX because she is having difficulty seeing near. Please review and place referral to: [facility] [place] [address] Provider: [facility] as STAT as appt is on 05/22. Thank you! * Telephone Encounter - Daly Núñez - 05/14/2024 2:04 PM EDT TC from pt requesting new referral : DATE: 05/22/24 TIME: Address: [address] [place] [address] Visits: 1 Facility Name: [facility] Type of Specialist: Ophthalmology DX: Provider : Cruz Provider NPI : [id number] Facility NPI: Phone # : [phone] Fax #: [phone] documented in this encounter Plan of Treatment Not on file documented as of this encounter Visit Diagnoses Not on filedocumented in this encounter Care Teams Medical Technologist Microbiology Relationship Specialty Start Date End Date Maureen Jordan FNP [address] [place] [phone] PCP - General Family Medicine 01/23/24 documented as of this encounter
--- OUTSIDE RECORDS SUMMARY | 2024-10-18 11:26 | XMS_ITS | Encounter Summary ---
Author Organization [employer] [facility] Address [address] [facility] 7t [place] [address] Care Team Providers Care Foley Artist Name Role Phone [place] MAIL MACHINE OPERATOR Primary Care Provider [phone] Reason for Referral * Consultation (Routine) - Pending Review Specialty Diagnoses / Procedures Referred By Breanne regalado Referred To Contact Orthopaedic Surgery Diagnoses Closed nondisplaced fracture of middle phalanx of lesser toe of right foot, initial encounter Injury of right ankle, initial encounter Betito Patton MD [address] [place] [address] Phone: tel: fax: Referral ID Status Reason Start Date Expiration Date Visits Requested Visits Authorized [id number] Pending Review Specialty Services Required 10/18/2024 10/18/2025 1 1 Encounter Details Date Type Department Care Team (Late st Contact Info) Description 10/18/2024 9:40 AM EDT Office Visit [facility] [address] [place], [place] [phone] Closed nondisplaced fracture of middle phalanx of lesser toe of right foot, initial encounter (Primary Dx); Injury of right ankle, initial encounter; Toe pain, right; Acute right ankle pain; Injury of right toe, initial encounter Social History Tobacco Use Types Packs/Day Years Used Date Smoking Tobacco: Former Cigarettes Smokeless Tobacco: Never Housing Stability Answer Date Recorded What is [...] the past 12 months, has t he [employer], gas, oil or water [employer]) threatened to shut off services in your [...] AM EDT documented as of this encounter Last Filed Vital Signs Vital Sign Reading Time Taken Comments Blood Pressure 133/84 10/18/2024 9:42 AM EDT Pulse 85 10/18/2024 9:42 AM EDT Temperature 36.3 ??C (97.4 ??F) 10/18/2024 9:42 AM ED T Respiratory Rate 18 10/18/2024 9:42 AM EDT Oxygen Saturation 98% 10/18/2024 9:42 AM EDT Inhaled Oxygen Concentration - - Weight 90 kg (198 lb 6.4 oz) 10/18/2024 9:42 AM EDT Height 152.4 cm (5') 10/18/2024 9:42 AM EDT Body Mass Index 38.75 10/18/2024 9:42 AM EDT documented in this encounter Plan of Treatment Scheduled Orders Name Type Priority Associated Diagnoses Orde r Schedule XR Ankle 3+ Views Right Imaging Routine Acute right ankle pain Injury of right ankle, initial encounter Expected: 10/18/2024, Expires: 10/18/2025 XR Toes 2+ Views Right Imaging Routine Toe pain, right Injury of right toe, initial encounter Expected: 10/18/2024, Expires: 10/18/2025 Scheduled Referrals Name Type Priority Associated Diagnoses Orde r Schedule Referral to Orthopaedic Surgery Outpatient Referral Routine Closed nondisplaced fracture of middle phalanx of lesser toe of right foot, initial encounter Injury of right ankle, initial encounter Expected: 10/18/2024 (Approximate), Expires: 10/18/2025 documented as of this encounter Visit Diagnoses Diagnosis Closed nondisplaced fracture of middle phalanx of lesser toe of right foot, initial encounter- Primary Injury of right ankle, initial encounter Toe pain, right Pain in soft tissues of limb Acute right ankle pain Injury of right toe, initial encounter documented in this encounter Care Teams Foley Artist Relationship Specialty Start Date End Date Maureen Jordan FNP [address] [place] [phone] PCP - General Family Medicine 01/23/24 documented as of this encounter
--- OUTSIDE RECORDS SUMMARY | 2024-10-18 11:26 | XMS_ITS | Clinical Summary ---
Author Organization [employer] [facility] Address [address] [facility] 7t [place] [address] Care Team Providers Care Forge Heater Name Role Phone [facility] Primary Care Provider [phone] Allergies No known active allergies Medications No known medications Active Problems Problem Noted Date Diagnosed Date Adverse clinical event associated with anesthesi a 01/30/2023 AMA (advanced maternal age) multigravida 35+ Depression 01/30/2023 History of pre-eclampsia 01/30/2023 Right ovarian cyst 01/30/2023 Status post loop electrosurg ical excision procedure (LEEP) of cervix 01/30/2023 COVID-19 affecting in second trimester 06/15/2022 BMI 34.0-34.9,adult 02/14/2022 S/P laparoscopic sleeve gastrectomy 09/23/2021 Essential hypertension 08/04/2015 Morbid obesity 01/23/2012 Overview (01/30/2023): 01/19/23: weight management appt Encounters Date Type Department Care Team Description 10/18/2024 9:40 AM EDT Office Visit [facility] [address] [place] [address] Closed nondisplaced fracture of middle phalanx of lesser toe of right foot, initial encounter (Primary Dx); Injury of right ankle, initial encounter; Toe pain, right; Acute right ankle pain; Injury of right toe, initial encounter 09/27/2024 Population Health Risk Score [facility] (C[facility]) Department [address] [phone] Provider, Population Health Generic 08/01/2024 Orders Only [facility] [address] [place] [address] Exchange, Maureen, HELP DESK REPRESENTATIVE from Last 3 Months Social History Tobacco Use Types Packs/Day Years [...] not to disclose 2021 10:16 AM EDT Last Filed Vital Signs Vital Sign Reading [...] Mass Index 38.75 10/18/2024 9:42 AM EDT Plan of Treatment Health Maintenance Due Date Last Done Comments Depression Screening 1981 HIV Screening 1981 Alcohol/Substance Use Screening 1993 Family Planning (PISQ) 02/13/1996 Hepatitis C Screening 1999 Pap Smear 2002 Cervical Cancer Screening 2011 HPV/Cotest 2011 COVID-19 Vaccine ( season) 2024 07/30/2021, 09/09/2020, 08/19/2020 Influenza Vaccine (#1) 2024 , 05/04/2022, 05/24/2021, Additional history exists SDOH Screening 03/29/2025 03/29/2024 Mammogram 08/01/2025 08/01/2024, 06/16, 07/12/2021 Tobacco Screening 10/18/2025 10/18/2024 Lipid Panel 08/18/2027 08/18/2022, 07/17, 05/26/2021 Zoster Vaccines (1 of 2) 2031 DTaP/Tdap/Td Vaccines (6 - Td or Tdap) 08/26/2032 08/26/2022, 01/06/2022, 01/06/2022, Additional history exists RSV Patients and Patients Aged 60 years or older (1 - 1-dose 75+ series) 02/13/2056 Hepatitis B Vaccines Completed 08/09/2002, 03/19/2002, 01/11/2002 HIB Vaccines Aged Out No longer eligi ble based on patient's age to complete this topic HPV Vaccines Aged Out No longer eligi ble based on patient's age to complete this topic Hepatitis A Vaccines Aged Out No long er eligible based on patient's age to complete this topic IPV Vaccines Aged Out No longer eligi ble based on patient's age to complete this topic Meningococcal Vaccine Aged Out No sonu katy eligible based on patient's age to complete this topic Pneumococcal Vaccine: Pediatrics (0 to 5 Years) and At-Risk Patients (6 to 49) Years) Aged Out No longer eligible based on patient's age to complete this topic RSV under 20 months Aged Out No longe r eligible based on patient's age to complete this topic Rotavirus Vaccines Aged Out No longer eligible based on patient's age to complete this topic Procedures Procedure Name Priority Date/Time Associated Diagnosis Comments BI MAMMOGRAM SCREENING TOMOSYNTHESIS BILATERAL Routine 08/01/2024 8:30 AM EST LIPID PANEL, STANDARD Routine 08/18/2022 7:15 AM EST from Last 3 Months or Most Recently Relevant to Health Maintenance Results * BI Mammogram Screening Tomosynthesis Bilateral (08/01/2024 8:30 AM EST) Anatomical Region Laterality Modality Breast Bilateral Mammography 08/01/2024 8:30 AM EST Narrative 08/11/2024 11:06 AM EST ? [facility] [place] ? [address] ?[place] [address] ? Mammography Report ? Signed ? Patient: Blake Hdz ?MR#: [id number] ? : 1980 ?Acct:[id number] ? Age/Sex: 44 / F ?ADM Date: /16/25 ? Loc: HO.MAMMO ? Attending Dr: Maureen Julian HELP DESK REPRESENTATIVE ? Ordering Physician: Julian,Maureen HELP DESK REPRESENTATIVE ?Results: 1Nega ?? tive ? Date of Service: /16/25 ?Follow Up: 1 Year From Orig ?? inal Mammogram ? Procedure(s): MM tomosynthesis screening BI ?? Accession Number(s): [id number] ? cc: JulianMaureen healy HELP DESK REPRESENTATIVE ? EXAMINATION: ?? MM SCREENING DIGITAL BREAST TOMOSYNTHESIS, BILATERAL ? CLINICAL INFORMATION: ? Screening. Asymptomatic. ? COMPARISON: ?? Mammography: Comparison is made with available priors ? TECHNIQUE: ?? Digital breast mammography with tomosynthesis is performed in both the ?? craniocaudal and mediolateral oblique views along with computer-aided ?? detection (CAD). ? FINDINGS: ?? There are scattered areas of fibroglandular density (ACR BI-RADS breast ?? composition Category b). ? There are no significant masses, abnormal calcifications, or other ?? abnormalities. ? MM/MM tomosynthesis screening BI ?? IMPRESSION: ?? No mammographic evidence of malignancy. ? ASSESSMENT: ? BI-RADS BI-RADS 1 - Negative ? RECOMMENDATION: ?? Routine annual mammography screening. ? 1 year F/U ? This examination should not preclude the clinical evaluation of a ?? suspicious palpable abnormality. ? This patient's information was entered into a reminder system with a ?? target due date for their next mammogram. ? Electronically signed by: ??Fela Mcclelland DO ??08/11/2024 11:03 AM EST ? Dictated By: ?Fela Mcclelland DO ? Signed By: ?<Electronically signed by Fela Mcclelland, DO in OV> ? 08/11/24 1103 ? DD/ 0830 ? TD/TT: 08/01/24 0848 ? Artificial Intelligence Specialist: ? Procedure Note Stephanie, Image - 08/11/2024 [facility] [address] [place] [address] [place] [address] Mammography Report Signed Patient: Yvan Hdz#: [id number] : 1980Acct:[id number] Age/Sex: 44 / FADM Date: 08/01/24 Loc: MADISYN Attending Dr: Maureen Jordan HELP DESK REPRESENTATIVE Ordering Physician: Maureen Jordan FNPResults: 1Nega tive Date of Service: 08/01/24Follow Up: 1 Year From Orig inal Mammogram Procedure(s): MM tomosynthesis screening BI Accession Number(s): [id number] cc: [facility] HELP DESK REPRESENTATIVE EXAMINATION: MM SCREENING DIGITAL BREAST TOMOSYNTHESIS, BILATERAL CLINICAL INFORMATION: Screening. Asymptomatic. COMPARISON: Mammography: Comparison is made with available priors TECHNIQUE: Digital breast mammography with tomosynthesis is performed in both the craniocaudal and mediolateral oblique views along with computer-aided detection (CAD). FINDINGS: There are scattered areas of fibroglandular density (ACR BI-RADS breast composition Category b). There are no significant masses, abnormal calcifications, or other abnormalities. MM/MM tomosynthesis screening BI IMPRESSION: No mammographic evidence of malignancy. ASSESSMENT: BI-RADS BI-RADS 1 - Negative RECOMMENDATION: Routine annual mammography screening. 1 year F/U This examination should not preclude the clinical evaluation of a suspicious palpable abnormality. This patient's information was entered into a reminder system with a target due date for their next mammogram. Electronically signed by: Fela Mcclelland DO 08/11/2024 11:03 AM EST RP Dictated By: Fela Mcclelland DO Signed By: <Electronically signed by Fela Mcclelland DO in OV> 08/11/24 1103 DD/ 0830 TD/TT: 08/01/24 0848 Artificial Intelligence Specialist: [facility] HELP DESK REPRESENTATIVE IMG BI PROCEDURES Edited Resu lt - Final * Lipid Panel, Standard (08/18/2022 7:15 AM EST) Triglycerides 247 mg/dL [facility] Comment:Desirable Triglyceri de: less than 150 mg/dLBorderline High Triglyceride 150-199 mg/dLHigh Triglyceride: 200-499 mg/dLVery High Triglyceride: greater than or equal to 5OO mg/dL Cholesterol 288 mg/dL [facility] Comment:Desirable Cholestero l: less than 200 mg/dLBorderline High Cholesterol: 200-239 mg/dLHigh Cholesterol: greater than 239 mg/dL LDL Cholesterol Calculated 162 mg/dl [facility] Comment:Desirable LDL: less than 100 mg/dLNear Optimal/Above Optimal LDL: 110- 129 mg/dLBorderline High LDL: 130-159 mg/dLHigh LDL: 160-189 mg/dLVery High LDL: greater than or equal to 190 mg/dL HDL Cholesterol 77 mg/dL [facility] Comment:Desirable HDL: great er than 40 mg/dL Note: This HDL assay may give artificially low results in patients with liver disease. 08/18/2022 7:1 5 AM EST 08/18/2022 7:15 AM EST us [facility] External Provider LAB BLO OD ORDERABLES Final Result Performing Organization Address City/State/[facility] Co de Phone Number [facility] [address] [place] [address] [phone] from Last 3 Months or Most Recently Relevant to Health Maintenance Insurance [facility] Care Teams Forge Heater Relationship Specialty Start Date End Date Exchange SONNY Reddy [address] [place] [phone] PCP - General Family Medicine 01/23/24
== END 2024-10-18 10:05 | disposition home or self-care (01) ==
LOC: HO.HHCX 10:04
PROVIDERS: Visit Provider Emergency Medicine
DX: M25.571 Pain in right ankle and joints of right foot (principal); S99.911A Unspecified injury of right ankle, initial encounter; M79.674 Pain in right toe(s); S99.921A Unspecified injury of right foot, initial encounter
CPT/HCPCS: 73610; 73660

== ENCOUNTER → 2024-10-18 10:04 | Outpatient (BNV) | payer MEDICAID, SELFPAY | PROVIDERS: Visit Provider Radiology Diagnostic Radiology | DX: M25.571 Pain in right ankle and joints of right foot (principal); S92.514A Nondisplaced fracture of proximal phalanx of right lesser toe(s), initial encounter for closed fracture | CPT/HCPCS: 73610; 73660 ==